=== PATIENT | male | born 1950 | race Caucasian/White ===

== ENCOUNTER 2018-03-04 18:01 | Inpatient (IN) | payer MEDICARE, MEDICAID ==
[~2018-03-04] VITALS: Ht 185.4 cm; Wt 107.6 kg
[~2018-03-04 18:01] MED LIST: ALBU18HF2 INH; ALBU2.5V13 NEB; ALLO100T PO; AMIO200T57 PO; ATOR40TA71 PO; BUDE10.2 INH; CARV25TA PO; COL0.6T PO; FURO-149 PO; LISI-642 PO; LORA0.5T PO; LORA10TA7 PO; MAGN400T6 PO; MELO-102 PO; METF-516 PO; OMEG500C3 PO; POTA10TA15 PO; SPIIN INH; SPIR25TA5 PO; TEST200V10 IM; THIA100T70 PO; UBID100C16 PO
[2018-03-04 19:03] LABS: BASOPHILS # (AUTO) 0.1 X10'3 (0-0.2); BASOPHILS % (AUTO) 0.8 % (0-1); EOSINOPHILS # (AUTO) 0.2 X10'3 (0-0.9); EOSINOPHILS % (AUTO) 1.8 % (0-6); HEMATOCRIT 51.8 % (42.0-52.0); HEMOGLOBIN 17.6 g/dl (14.0-17.9); LYMPHOCYTES # (AUTO) 1.6 X10'3 (1.1-4.8); LYMPHOCYTES % (AUTO) 18.5 % (21-51); MEAN CORPUSCULAR HEMOGLOBIN 31.5 PG (27.0-31.0); MEAN CORPUSCULAR HGB CONC 34.1 % (33.0-36.5); MEAN CORPUSCULAR VOLUME 92.4 FL (78-98); MEAN PLATELET VOLUME 8.6 FL (7.4-10.4); MONOCYTES # (AUTO) 0.6 X10'3 (0-0.9); MONOCYTES % (AUTO) 7.5 % (2-12); NEUTROPHILS # (AUTO) 6.1 X10'3 (1.8-7.7); NEUTROPHILS % (AUTO) 71.4 % (42-75); PLATELET COUNT 166 X10'3 (140-440); RED CELL DISTRIBUTION WIDTH 14.2 % (11.5-14.5); WHITE BLOOD COUNT 8.6 X10'3 (4.5-11.0)
[2018-03-04 19:13] LABS: PARTIAL THROMBOPLASTIN TIME 27 SECONDS (22-32); PROTHROMBIN TIME 10.6 SECONDS (9.0-12.0)
[2018-03-04 19:29] LABS: ALANINE AMINOTRANSFERASE 40 U/L (12-78); ALBUMIN 3.9 G/DL (3.4-5.0); ALBUMIN/GLOBULIN RATIO 1.1 (1.1-1.5); ALKALINE PHOSPHATASE 65 IU/L (46-116); ANION GAP 7 (8-16); ASPARTATE AMINO TRANSFERASE 24 U/L (10-37); BLOOD UREA NITROGEN 22 MG/DL (7-18); BUN/CREATININE RATIO 14.3 (5.4-32.0); CALCIUM 9.9 MG/DL (8.5-10.1); CHLORIDE 100 MMOL/L (99-107); CREATININE 1.54 MG/DL (0.60-1.10); GLUCOSE 115 MG/DL (70-104); POTASSIUM 3.9 MMOL/L (3.5-5.1); SODIUM 141 MMOL/L (135-145); TOTAL CARBON DIOXIDE 34.1 MMOL/L (24-32); TOTAL PROTEIN 7.3 G/DL (6.4-8.2); eGFR 46 ML/MIN
[2018-03-04] MEDS ORDERED: ondansetron/PF 4mg/2ml inj IV ONE (20:25)
[2018-03-04] MEDS ORDERED: meclizine 12.5mg tablet PO ONE (20:25)
[2018-03-04 20:47] LABS: D-DIMER 0.78 MG/L FEU (0-0.50)
[2018-03-04] MEDS ORDERED: furosemide 10 MG/1 ML 10ml inj IV ONE (21:10)
[2018-03-05] MEDS ORDERED: CARVEDILOL 25 MG TABLET (01:03)
[2018-03-05] MEDS ORDERED: INCRUSE ELLIPTA 62.5 MCG (01:03)
[2018-03-05] MEDS ORDERED: CARV25TA PO (01:05)
[2018-03-05] MEDS ORDERED: FURO-149 PO (01:06)
[2018-03-05] MEDS ORDERED: MULT-38 PO (01:06)
[2018-03-05] MEDS ORDERED: MAGN400C PO (01:08)
[2018-03-05] MEDS ORDERED: TEST75GE TD (01:16)
[2018-03-05] MEDS ORDERED: loratadine 10mg tablet PO PRN (01:45)
[2018-03-05] MEDS ORDERED: acetaminophen 325mg tablet PO PRN (01:45)
[2018-03-05] MEDS ORDERED: magnesium hydroxide 30ml (MOM) UD suspension PO PRN (01:45)
[2018-03-05] MEDS ORDERED: ondansetron/PF 4mg/2ml inj IV PRN (01:45)
[2018-03-05] MEDS ORDERED: LORazepam 0.5 MG tablet PO PRN (01:45)
[2018-03-05] MEDS ORDERED: mag hydrox/Alum hydrox/simeth 30ml oral suspension PO PRN (01:45)
[2018-03-05] MEDS ORDERED: magnesium Cl slow-release 64mg tablet PO PRN (01:50)
[2018-03-05] MEDS ORDERED: magnesium 1gm/100ml D5W IVPB 100 ML IV PRN (01:50)
[2018-03-05] MEDS ORDERED: meclizine 12.5mg tablet PO PRN (01:55)
[2018-03-05 01:58] LABS: MAGNESIUM 1.6 MG/DL (1.5-2.4)
[2018-03-05] MEDS ORDERED: albuterol 2.5 MG/3 ML nebule NEB PRN (02:50)
[2018-03-05 02:51] VITALS: BP 121/82
[2018-03-05 06:00] VITALS: BP 127/64
[2018-03-05] MEDS ORDERED: furosemide 40mg tablet PO SCH (08:00)
[2018-03-05] MEDS ORDERED: non-formulary drug (Budesonide/Formoterol Fumarate (Symbicort 160-4.5 Mcg Inhaler) 2 PUFFS INH SCH (08:00)
[2018-03-05] MEDS ORDERED: non-formulary drug (Ubidecarenone (Coq-10) 100 MG) PO SCH (08:00)
[2018-03-05] MEDS: multivitamins, therapeutics tablet PO SCH (08:50)
[2018-03-05] MEDS: spironolactone 25 MG tablet PO SCH (08:50)
[2018-03-05] MEDS: magnesium oxide 400mg tablet PO SCH (08:50)
[2018-03-05] MEDS: OMEGA-3/DHA/EPA/FISH OIL 1 EACH CAPSULE.DR PO SCH (08:50)
[2018-03-05] MEDS: carVEDilol 12.5mg tablet PO SCH ×2 (08:50→20:32)
[2018-03-05] MEDS: ipratropium 0.5 MG/2.5ML nebule IH SCH ×3 (08:54→21:33)
[2018-03-05] MEDS: albuterol 2.5 MG/3 ML nebule NEB SCH ×4 (08:54→21:32)
[2018-03-05] MEDS: budesonide 0.5mg/2ml UD nebule IH SCH ×2 (08:54→21:32)
[2018-03-05] MEDS ORDERED: magnesium 4gm in 100ml NS 100 ML IV ONE (10:30)
[2018-03-05] MEDS: furosemide 40mg/4ml inj IV SCH ×2 (10:57→20:32)
[2018-03-05 11:00] VITALS: BP 100/65
[2018-03-05] MEDS: potassium Cl 20 mEq SR tablet PO SCH ×2 (11:06→18:00)
[2018-03-05] MEDS: amiodarone 200mg tablet PO SCH (13:19)
[2018-03-05 15:00] VITALS: BP 116/80
[2018-03-05 18:00] VITALS: BP 113/63
[2018-03-05] MEDS ORDERED: ketorolac tromethamine 15mg/ml inj. IV PRN (18:30)
[2018-03-05] MEDS: HYDROcodone/acetaminophen 5mg/325mg tablet PO PRN (20:34)
[2018-03-05] MEDS: zolpidem 5mg tablet PO SCH (21:00)
[2018-03-05 22:00] VITALS: BP 107/71
[2018-03-06 02:00] VITALS: BP 97/65
[2018-03-06 05:47] LABS: BASOPHILS % (AUTO) 0.5 % (0-1); EOSINOPHILS # (AUTO) 0.2 X10'3 (0-0.9); EOSINOPHILS % (AUTO) 2.2 % (0-6); HEMATOCRIT 51.5 % (42.0-52.0); HEMOGLOBIN 17.4 g/dl (14.0-17.9); LYMPHOCYTES # (AUTO) 1.9 X10'3 (1.1-4.8); LYMPHOCYTES % (AUTO) 27.6 % (21-51); MEAN CORPUSCULAR HEMOGLOBIN 31.7 PG (27.0-31.0); MEAN CORPUSCULAR HGB CONC 33.8 % (33.0-36.5); MEAN CORPUSCULAR VOLUME 93.7 FL (78-98); MONOCYTES # (AUTO) 0.7 X10'3 (0-0.9); MONOCYTES % (AUTO) 9.4 % (2-12); NEUTROPHILS # (AUTO) 4.2 X10'3 (1.8-7.7); NEUTROPHILS % (AUTO) 60.3 % (42-75); PLATELET COUNT 144 X10'3 (140-440); RED BLOOD COUNT 5.49 X10'6 (4.70-6.10); RED CELL DISTRIBUTION WIDTH 14.4 % (11.5-14.5); WHITE BLOOD COUNT 6.9 X10'3 (4.5-11.0)
[2018-03-06 05:55] LABS: ALANINE AMINOTRANSFERASE 32 U/L (12-78); ALBUMIN 3.2 G/DL (3.4-5.0); ALBUMIN/GLOBULIN RATIO 0.9 (1.1-1.5); ALKALINE PHOSPHATASE 67 IU/L (46-116); ANION GAP 7 (8-16); ASPARTATE AMINO TRANSFERASE 18 U/L (10-37); BILIRUBIN,TOTAL 0.7 MG/DL (0.1-1.0); BLOOD UREA NITROGEN 25 MG/DL (7-18); BUN/CREATININE RATIO 18.1 (5.4-32.0); CALCIUM 8.6 MG/DL (8.5-10.1); CHLORIDE 101 MMOL/L (99-107); CREATININE 1.38 MG/DL (0.60-1.10); GLUCOSE 131 MG/DL (70-104); MAGNESIUM 1.7 MG/DL (1.5-2.4); POTASSIUM 4.2 MMOL/L (3.5-5.1); SODIUM 140 MMOL/L (135-145); TOTAL CARBON DIOXIDE 31.8 MMOL/L (24-32); TOTAL PROTEIN 6.7 G/DL (6.4-8.2); eGFR 52 ML/MIN
[2018-03-06 06:00] VITALS: BP 97/67
[2018-03-06] MEDS: ipratropium/albuterol 3ml nebule NEB SCH ×4 (07:00→20:13)
[2018-03-06] MEDS: multivitamins, therapeutics tablet PO SCH (07:57)
[2018-03-06] MEDS: OMEGA-3/DHA/EPA/FISH OIL 1 EACH CAPSULE.DR PO SCH (07:57)
[2018-03-06] MEDS: potassium Cl 20 mEq SR tablet PO SCH ×2 (07:58→16:40)
[2018-03-06] MEDS: magnesium oxide 400mg tablet PO SCH (07:58)
[2018-03-06] MEDS: HYDROcodone/acetaminophen 5mg/325mg tablet PO PRN ×3 (07:58→19:55)
[2018-03-06] MEDS: carVEDilol 12.5mg tablet PO SCH ×2 (07:59→19:49)
[2018-03-06] MEDS: furosemide 40mg/4ml inj IV SCH ×2 (07:59→19:49)
[2018-03-06] MEDS: ipratropium 0.5 MG/2.5ML nebule IH SCH ×3 (08:00→20:00)
[2018-03-06] MEDS ORDERED: magnesium 4gm in 100ml NS 100 ML IV ONE (08:00)
[2018-03-06] MEDS: amiodarone 200mg tablet PO SCH (08:01)
[2018-03-06] MEDS: spironolactone 25 MG tablet PO SCH (08:01)
[2018-03-06] MEDS: budesonide 0.5mg/2ml UD nebule IH SCH ×2 (08:32→20:13)
[2018-03-06 11:51] VITALS: BP 99/64
[2018-03-06 15:00] VITALS: BP 95/65
[2018-03-06 18:00] VITALS: BP 114/68
[2018-03-06] MEDS: zolpidem 5mg tablet PO SCH (19:56)
[2018-03-06 22:00] VITALS: BP 107/69
[2018-03-07 02:00] VITALS: BP 107/74
[2018-03-07] MEDS: ipratropium 0.5 MG/2.5ML nebule IH SCH ×2 (02:00→08:00)
[2018-03-07 06:00] VITALS: BP 119/72
[2018-03-07 06:03] LABS: ALANINE AMINOTRANSFERASE 36 U/L (12-78); ALBUMIN 3.4 G/DL (3.4-5.0); ALKALINE PHOSPHATASE 63 IU/L (46-116); ANION GAP 7 (8-16); ASPARTATE AMINO TRANSFERASE 17 U/L (10-37); BILIRUBIN,TOTAL 0.7 MG/DL (0.1-1.0); BLOOD UREA NITROGEN 30 MG/DL (7-18); BUN/CREATININE RATIO 19.4 (5.4-32.0); CALCIUM 8.6 MG/DL (8.5-10.1); CHLORIDE 102 MMOL/L (99-107); CREATININE 1.55 MG/DL (0.60-1.10); GLUCOSE 114 MG/DL (70-104); MAGNESIUM 1.9 MG/DL (1.5-2.4); POTASSIUM 4.5 MMOL/L (3.5-5.1); SODIUM 141 MMOL/L (135-145); TOTAL PROTEIN 6.7 G/DL (6.4-8.2); eGFR 45 ML/MIN
[2018-03-07 06:57] LABS: HEMATOCRIT 49.9 % (42.0-52.0); HEMOGLOBIN 16.6 g/dl (14.0-17.9); MEAN CORPUSCULAR HEMOGLOBIN 31.5 PG (27.0-31.0); MEAN CORPUSCULAR VOLUME 94.5 FL (78-98); RED BLOOD COUNT 5.28 X10'6 (4.70-6.10); WHITE BLOOD COUNT 7.6 X10'3 (4.5-11.0)
[2018-03-07 06:58] LABS: BASOPHILS % (AUTO) 0.4 % (0-1); EOSINOPHILS # (AUTO) 0.1 X10'3 (0-0.9); LYMPHOCYTES # (AUTO) 1.8 X10'3 (1.1-4.8); LYMPHOCYTES % (AUTO) 23.4 % (21-51); MEAN CORPUSCULAR HGB CONC 33.3 % (33.0-36.5); MEAN PLATELET VOLUME 8.6 FL (7.4-10.4); MONOCYTES # (AUTO) 0.7 X10'3 (0-0.9); MONOCYTES % (AUTO) 9.1 % (2-12); NEUTROPHILS # (AUTO) 4.9 X10'3 (1.8-7.7); NEUTROPHILS % (AUTO) 65.1 % (42-75); PLATELET COUNT 154 X10'3 (140-440); RED CELL DISTRIBUTION WIDTH 14.2 % (11.5-14.5)
[2018-03-07] MEDS: ipratropium/albuterol 3ml nebule NEB SCH ×2 (07:00→12:13)
[2018-03-07] MEDS: spironolactone 25 MG tablet PO SCH (07:49)
[2018-03-07] MEDS: multivitamins, therapeutics tablet PO SCH (07:50)
[2018-03-07] MEDS: amiodarone 200mg tablet PO SCH (07:50)
[2018-03-07] MEDS: carVEDilol 12.5mg tablet PO SCH (07:50)
[2018-03-07] MEDS: magnesium oxide 400mg tablet PO SCH (07:50)
[2018-03-07] MEDS: OMEGA-3/DHA/EPA/FISH OIL 1 EACH CAPSULE.DR PO SCH (07:50)
[2018-03-07] MEDS: HYDROcodone/acetaminophen 5mg/325mg tablet PO PRN (07:50)
[2018-03-07] MEDS: budesonide 0.5mg/2ml UD nebule IH SCH (07:51)
[2018-03-07] MEDS: potassium Cl 20 mEq SR tablet PO SCH (08:30)
[2018-03-07 09:00] VITALS: BP_SYST 103; BP_SYST 113; BP_SYST 122; BP_DIAS 63; BP_DIAS 67; BP_DIAS 74
[2018-03-07] MEDS: furosemide 40mg/4ml inj IV SCH (09:05)
[2018-03-07] MEDS ORDERED: AMIO200T57 PO (09:13)
[2018-03-07] MEDS ORDERED: MECL12.584 PO (09:27)
[2018-03-07 11:00] VITALS: BP 109/68
== END 2018-03-07 15:30 | disposition home or self-care (01) | DRG 291 ==
LOC: ER 18:02 → ED HOLD 03-05 01:43 → PCU 3S 03-05 02:27
PROVIDERS: ADMIT Internal Medicine; ATTEND Family Medicine
PROC: 4B02XTZ Measurement of Cardiac Defibrillator, External Approach (ICD-10-PCS; principal; 2018-03-06)
DX: I13.0 Hypertensive heart and chronic kidney disease with heart failure and stage 1 through stage 4 chronic kidney disease, or unspecified chronic kidney disease (principal); I50.23 Acute on chronic systolic (congestive) heart failure; I47.2 Ventricular tachycardia; I42.9 Cardiomyopathy, unspecified; F41.9 Anxiety disorder, unspecified; G47.33 Obstructive sleep apnea (adult) (pediatric); I25.10 Atherosclerotic heart disease of native coronary artery without angina pectoris; I71.4 Abdominal aortic aneurysm, without rupture; J44.9 Chronic obstructive pulmonary disease, unspecified; M10.9 Gout, unspecified; N18.9 Chronic kidney disease, unspecified; E83.42 Hypomagnesemia; I44.7 Left bundle-branch block, unspecified; Z96.653 Presence of artificial knee joint, bilateral; M19.90 Unspecified osteoarthritis, unspecified site; N40.0 Benign prostatic hyperplasia without lower urinary tract symptoms; Z95.810 Presence of automatic (implantable) cardiac defibrillator; Z98.1 Arthrodesis status; Z88.0 Allergy status to penicillin; Z79.51 Long term (current) use of inhaled steroids; Z79.899 Other long term (current) drug therapy; Z87.891 Personal history of nicotine dependence; Z83.42 Family history of familial hypercholesterolemia; Z80.0 Family history of malignant neoplasm of digestive organs; Y92.89 Other specified places as the place of occurrence of the external cause
CPT/HCPCS: 36415; 71045; 80053; 83735; 83880; 84484; 85025; 85379; 85610; 85730; 87070; 93005; 94640; 94760; 96374; 96375; 99285; J1885; J1940; J2405; J3475; J7030; J7626; J8597

== ENCOUNTER 2018-09-19 20:16 | Emergency (ER) | payer MEDICARE, MEDICAID ==
[~2018-09-19] VITALS: Ht 185.4 cm; Wt 80.0 kg
[~2018-09-19 20:16] MED LIST changes: -ALBU2.5V13 NEB; -ALLO100T PO; +AMIO200T40 PO; -AMIO200T57 PO; -ATOR40TA71 PO; -COL0.6T PO; +INCRUSE ELLIPTA 62.5 MCG; -LISI-642 PO; +MAGN400C PO; -MAGN400T6 PO; +MECL12.584 PO; -MELO-102 PO; -METF-516 PO; +MULT-38 PO; -POTA10TA15 PO; -TEST200V10 IM; +TEST75GE TD; -THIA100T70 PO
[2018-09-19 20:47] LABS: BASOPHILS % (AUTO) 0.3 % (0-1); EOSINOPHILS # (AUTO) 0.2 X10'3 (0-0.9); HEMATOCRIT 48.9 % (42.0-52.0); HEMOGLOBIN 16.4 g/dl (14.0-17.9); LYMPHOCYTES # (AUTO) 1.9 X10'3 (1.1-4.8); LYMPHOCYTES % (AUTO) 19.6 % (21-51); MEAN CORPUSCULAR HGB CONC 33.5 % (33.0-36.5); MEAN CORPUSCULAR VOLUME 92.5 FL (78-98); MEAN PLATELET VOLUME 9.1 FL (7.4-10.4); MONOCYTES # (AUTO) 0.6 X10'3 (0-0.9); MONOCYTES % (AUTO) 6.6 % (2-12); NEUTROPHILS % (AUTO) 71.5 % (42-75); PLATELET COUNT 187 X10'3 (140-440); RED BLOOD COUNT 5.29 X10'6 (4.70-6.10); RED CELL DISTRIBUTION WIDTH 14.2 % (11.5-14.5); WHITE BLOOD COUNT 9.7 X10'3 (4.5-11.0)
[2018-09-19 20:50] LABS: ALANINE AMINOTRANSFERASE 33 U/L (12-78); ALBUMIN 3.7 G/DL (3.4-5.0); ALKALINE PHOSPHATASE 90 IU/L (46-116); ANION GAP 5 (8-16); ASPARTATE AMINO TRANSFERASE 19 U/L (10-37); BILIRUBIN,TOTAL 0.6 MG/DL (0.1-1.0); BLOOD UREA NITROGEN 27 MG/DL (7-18); CALCIUM 9.1 MG/DL (8.5-10.1); CHLORIDE 100 MMOL/L (99-107); CREATININE 1.69 MG/DL (0.60-1.10); GLUCOSE 142 MG/DL (70-104); POTASSIUM 3.2 MMOL/L (3.5-5.1); SODIUM 142 MMOL/L (135-145); TOTAL CARBON DIOXIDE 37.1 MMOL/L (24-32); TOTAL PROTEIN 7.4 G/DL (6.4-8.2); eGFR 41 ML/MIN
--- NOTE | 2018-09-19 21:07 | NUR ---
PT IS 68 YO MALE C/O CHEST PRESSURE 6/10 X1 WEEK, INCREASING SOB, AT 1900 PT SAID HE WAS SHOCKED BY HIS PACEMAKER, INCREASED SWELLING IN THE BILATERAL LEGS, INCREASED LASIX TO 40MG BID FOR PAST 2 DAYS, EJ FRACTION PER PT 20-25%, FAMILY AT BEDSIDE, REPORT TO CYDNEY SANFORD
[2018-09-19 21:08] LABS: INR 1.1 INR; PARTIAL THROMBOPLASTIN TIME 28 SECONDS (22-32); PROTHROMBIN TIME 10.9 SECONDS (9.0-12.0)
[2018-09-19 21:43] LABS: MAGNESIUM 1.7 MG/DL (1.5-2.4)
[2018-09-19] MEDS ORDERED: potassium 10mEq/100ml NS w/LIDOcaine (10mg/bag) IV ONE (21:55)
[2018-09-20] MEDS ORDERED: furosemide 10 MG/1 ML 10ml inj IV ONE (01:05)
[2018-09-20] MEDS ORDERED: furosemide 20 MG/2 ML vial IV ONE (01:05)
[2018-09-20 01:11] VITALS: BP 126/74
--- NOTE | 2018-09-20 01:19 | NUR ---
Janett, [employer] tech, called with pacer interrogation results which will also be faxed: string ot VT noted with on particularly long resulting in 1 shock and successful response to normal sinus rythm. VT limit is set for >170 bpm.
--- NOTE | 2018-09-20 01:21 | NUR ---
CONNOR Cruz notified for [employer] results.
== END 2018-09-20 01:45 | disposition home or self-care (01) ==
LOC: ER 20:17
DX: T82.198A Other mechanical complication of other cardiac electronic device, initial encounter (principal); I47.2 Ventricular tachycardia; R60.9 Edema, unspecified; E87.6 Hypokalemia; Z95.810 Presence of automatic (implantable) cardiac defibrillator; I25.10 Atherosclerotic heart disease of native coronary artery without angina pectoris; I50.9 Heart failure, unspecified; J44.9 Chronic obstructive pulmonary disease, unspecified; Z86.14 Personal history of Methicillin resistant Staphylococcus aureus infection; Z98.890 Other specified postprocedural states; Z88.0 Allergy status to penicillin; Z79.899 Other long term (current) drug therapy
CPT/HCPCS: 36415; 71045; 80053; 83735; 83880; 84484; 85025; 85610; 85730; 93005; 96365; 96375; 99284; J1940; J3480

== ENCOUNTER 2018-10-02 14:43 | Inpatient (IN) | payer MEDICARE, MEDICAID ==
[~2018-10-02] VITALS: Ht 185.4 cm; Wt 79.9 kg
[2018-10-02 15:51] LABS: BASOPHILS # (AUTO) 0.1 X10'3 (0-0.2); BASOPHILS % (AUTO) 1.3 % (0-1); EOSINOPHILS # (AUTO) 0.2 X10'3 (0-0.9); EOSINOPHILS % (AUTO) 1.8 % (0-6); HEMATOCRIT 45.6 % (42.0-52.0); HEMOGLOBIN 15.2 g/dl (14.0-17.9); LYMPHOCYTES # (AUTO) 1.4 X10'3 (1.1-4.8); LYMPHOCYTES % (AUTO) 15.2 % (21-51); MEAN CORPUSCULAR HEMOGLOBIN 30.6 PG (27.0-31.0); MEAN CORPUSCULAR HGB CONC 33.3 g/dL (33.0-36.5); MEAN CORPUSCULAR VOLUME 91.9 FL (78-98); MEAN PLATELET VOLUME 8.8 FL (7.4-10.4); MONOCYTES # (AUTO) 0.8 X10'3 (0-0.9); MONOCYTES % (AUTO) 8.6 % (2-12); NEUTROPHILS # (AUTO) 6.5 X10'3 (1.8-7.7); NEUTROPHILS % (AUTO) 73.1 % (42-75); PLATELET COUNT 248 X10'3 (140-440); RED BLOOD COUNT 4.96 X10'6 (4.70-6.10); RED CELL DISTRIBUTION WIDTH 14.2 % (11.5-14.5); WHITE BLOOD COUNT 8.9 X10'3 (4.5-11.0)
[2018-10-02 16:02] LABS: CLARITY,URINE CLEAR (Clear); COLOR,URINE YELLOW (Yellow); GLUCOSE, URINE NEGATIVE (Neg); KETONES,URINE NEGATIVE (Neg); LEUKOCYTE ESTERASE ,URINE NEGATIVE (Neg); NITRITES, URINE NEGATIVE (Neg); OCCULT BLOOD,URINE NEGATIVE (Neg); PROTEIN,URINE NEGATIVE (Neg); UROBILINOGEN,URINE 0.2 E.U/dL (0.2-1.0)
[2018-10-02 16:04] LABS: UA COLLECTION TYPE CLN CATCH MIDSTREAM
[2018-10-02 16:07] LABS: ALANINE AMINOTRANSFERASE 8 U/L (12-78); ALBUMIN 3.4 G/DL (3.4-5.0); ALBUMIN/GLOBULIN RATIO 0.9 (1.1-1.5); ALKALINE PHOSPHATASE 79 IU/L (46-116); ANION GAP 7 (8-16); ASPARTATE AMINO TRANSFERASE 15 U/L (10-37); BILIRUBIN,TOTAL 0.7 MG/DL (0.1-1.0); BLOOD UREA NITROGEN 21 MG/DL (7-18); BUN/CREATININE RATIO 16.2 (5.4-32.0); CALCIUM 9.1 MG/DL (8.5-10.1); CHLORIDE 100 MMOL/L (99-107); GLUCOSE 123 MG/DL (70-104); SODIUM 139 MMOL/L (135-145); TOTAL CARBON DIOXIDE 31.6 MMOL/L (24-32); TOTAL PROTEIN 7.2 G/DL (6.4-8.2); eGFR 55 ML/MIN
[2018-10-02 16:23] LABS: INR 1.1 INR; PARTIAL THROMBOPLASTIN TIME 31 SECONDS (22-32); PROTHROMBIN TIME 11.4 SECONDS (9.0-12.0)
[2018-10-02] MEDS ORDERED: methylPREDNISolone sod succ 125mg/2ml vial IV ONE (18:55)
[2018-10-02] MEDS ORDERED: albuterol 2.5 MG/3 ML nebule NEB ONE (18:55)
[2018-10-02] MEDS ORDERED: ipratropium/albuterol 3ml nebule NEB ONE (18:55)
[2018-10-02] MEDS ORDERED: furosemide 40mg/4ml inj IV ONE (18:55)
[2018-10-02] MEDS ORDERED: temazepam 15mg capsule PO PRN (21:00)
[2018-10-02] MEDS ORDERED: mag hydrox/Alum hydrox/simeth 30ml oral suspension PO PRN (22:40)
[2018-10-02] MEDS ORDERED: potassium Cl 20 mEq SR tablet PO PRN ×2 (22:40)
[2018-10-02] MEDS ORDERED: magnesium 4gm in 100ml NS 100 ML IV PRN (22:40)
[2018-10-02] MEDS ORDERED: HYDROcodone/acetaminophen 5mg/325mg tablet PO PRN (22:40)
[2018-10-02] MEDS ORDERED: ondansetron/PF 4mg/2ml inj IV PRN (22:40)
[2018-10-02] MEDS ORDERED: magnesium Cl slow-release 64mg tablet PO PRN (22:40)
[2018-10-02] MEDS ORDERED: magnesium hydroxide 30ml (MOM) UD suspension PO PRN (22:40)
[2018-10-02] MEDS ORDERED: acetaminophen 325mg tablet PO PRN ×2 (22:40)
[2018-10-02] MEDS ORDERED: magnesium 2GM in 50ml NS 50 ML IV PRN (22:40)
[2018-10-02] MEDS ORDERED: albuterol 2.5 MG/3 ML nebule NEB PRN (22:40)
[2018-10-02] MEDS ORDERED: potassium Cl 40MEQ/NS 500ml 500 ML IV PRN ×2 (22:40)
[2018-10-03] MEDS: furosemide 10 MG/1 ML 10ml inj IV SCH ×3 (00:56→17:22)
[2018-10-03] MEDS: HYDROcodone/acetaminophen 10/325mg tab PO PRN ×4 (01:40→17:32)
--- NOTE | 2018-10-03 07:30 | NUR ---
Patient in room [facility]. I have received report from Barb RN and had the opportunity to ask questions and assume patient care.
--- NOTE | 2018-10-03 07:44 | NUR ---
Patient just arrived to floor at this time
[2018-10-03 07:48] VITALS: BP 124/67
[2018-10-03] MEDS ORDERED: AMIO200T40 PO (07:49)
[2018-10-03 07:57] LABS: BASOPHILS % (AUTO) 0.4 % (0-1); EOSINOPHILS % (AUTO) 0.7 % (0-6); HEMATOCRIT 47.1 % (42.0-52.0); HEMOGLOBIN 15.6 g/dl (14.0-17.9); LYMPHOCYTES # (AUTO) 0.6 X10'3 (1.1-4.8); LYMPHOCYTES % (AUTO) 10.6 % (21-51); MEAN CORPUSCULAR HEMOGLOBIN 30.2 PG (27.0-31.0); MEAN CORPUSCULAR HGB CONC 33.1 g/dL (33.0-36.5); MEAN PLATELET VOLUME 8.8 FL (7.4-10.4); MONOCYTES # (AUTO) 0.1 X10'3 (0-0.9); MONOCYTES % (AUTO) 1.7 % (2-12); NEUTROPHILS # (AUTO) 5.3 X10'3 (1.8-7.7); NEUTROPHILS % (AUTO) 86.6 % (42-75); PLATELET COUNT 245 X10'3 (140-440); RED BLOOD COUNT 5.17 X10'6 (4.70-6.10); RED CELL DISTRIBUTION WIDTH 13.9 % (11.5-14.5); WHITE BLOOD COUNT 6.1 X10'3 (4.5-11.0)
[2018-10-03] MEDS: K and/or MAG REPLACEMENT MC SCH (08:00)
[2018-10-03] MEDS ORDERED: MECL12.584 PO (08:04)
[2018-10-03 08:16] LABS: ALBUMIN 3.2 G/DL (3.4-5.0); ANION GAP 9 (8-16); BLOOD UREA NITROGEN 24 MG/DL (7-18); BUN/CREATININE RATIO 18.5 (5.4-32.0); CALCIUM 9.1 MG/DL (8.5-10.1); CHLORIDE 97 MMOL/L (99-107); GLUCOSE 213 MG/DL (70-104); MAGNESIUM 1.6 MG/DL (1.5-2.4); POTASSIUM 3.6 MMOL/L (3.5-5.1); SODIUM 140 MMOL/L (135-145); TOTAL CARBON DIOXIDE 34.1 MMOL/L (24-32); eGFR 55 ML/MIN
[2018-10-03] MEDS: enoxaparin 30mg/0.3ml syringe SUBCUT SCH (08:49)
[2018-10-03] MEDS ORDERED: LORazepam 0.5 MG tablet PO PRN (09:35)
[2018-10-03 11:00] VITALS: BP 127/84
[2018-10-03] MEDS ORDERED: albuterol 2.5 MG/3 ML nebule NEB SCH (11:00)
[2018-10-03] MEDS: ipratropium/albuterol 3ml nebule NEB SCH ×3 (11:03→19:06)
[2018-10-03] MEDS ORDERED: MULT-453 PO (12:40)
[2018-10-03] MEDS ORDERED: ALLO300T2 PO (12:43)
[2018-10-03] MEDS ORDERED: POTA8TAB8 PO (12:43)
[2018-10-03] MEDS ORDERED: COLC0.6T69 PO (12:45)
--- NOTE | 2018-10-03 14:00 | NUR ---
PHYSICIAN NOTIFIED THAT PATIENT HAD 23 BEAT RUN OF [facility]-TACH. PHYSICIAN ADDED NEW ORDERS AT THIS TIME.
[2018-10-03] MEDS ORDERED: magnesium 2GM in 50ml NS 50 ML IV ONE (14:20)
[2018-10-03] MEDS ORDERED: Potassium Cl inj 40 MEQ in normal saline 250ml IV soln 230 ML IV ONE (14:20)
[2018-10-03] MEDS ORDERED: potassium Cl 20 mEq SR tablet PO STA (14:36)
[2018-10-03] MEDS: methylPREDNISolone sod succ 125mg/2ml vial IV SCH ×2 (15:10→21:20)
[2018-10-03] MEDS ORDERED: triamcinolone acetonide 40mg/ml inj IM ONE (16:05)
--- NOTE | 2018-10-03 16:38 | NUR ---
Nutrition consult re: diets for gout and CHF. Pt seen at bedside given written and verbal low-purine/purine-restricted nutrition therapy and low sodium nutrition therapy education. All of patient's questions were answered at this time. RD contact information provided. Will remain available. Addendum: 10/03/18 at [address] Amended: Links added.
[2018-10-03] MEDS: allopurinol 300 MG tablet PO SCH (17:13)
[2018-10-03] MEDS: azithromycin 250mg tablet PO SCH (17:14)
[2018-10-03] MEDS: CefTRIAXone/D5W-Rocephin 1gm 50 ML IV SCH (17:14)
--- NOTE | 2018-10-03 17:52 | NUR ---
Patients IM Regina just arrived to floor, was unable to administer will have shift supervisor administer medication.
[2018-10-03 18:00] VITALS: BP 108/60
--- NOTE | 2018-10-03 18:39 | NUR ---
Problems reprioritized. Patient report given, questions answered & plan of care reviewed with Paul SANFORD.
--- NOTE | 2018-10-03 18:40 | NUR ---
Patient in room [facility] 358. I have received report from CLARIBEL Dumont and had the opportunity to ask questions and assume patient care.
[2018-10-03] MEDS: budesonide 0.5mg/2ml UD nebule IH SCH (19:06)
[2018-10-03] MEDS ORDERED: albuterol 2.5 MG/3 ML nebule NEB PRN (19:55)
[2018-10-03 20:29] LABS: ALBUMIN 3.3 G/DL (3.4-5.0); ANION GAP 11 (8-16); BLOOD UREA NITROGEN 32 MG/DL (7-18); BUN/CREATININE RATIO 19.5 (5.4-32.0); CALCIUM 9.6 MG/DL (8.5-10.1); CHLORIDE 95 MMOL/L (99-107); CREATININE 1.64 MG/DL (0.60-1.10); GLUCOSE 233 MG/DL (70-104); SODIUM 138 MMOL/L (135-145); TOTAL CARBON DIOXIDE 31.8 MMOL/L (24-32); eGFR 42 ML/MIN
[2018-10-03 20:33] LABS: POTASSIUM 4.3 MMOL/L (3.5-5.1)
[2018-10-03] MEDS ORDERED: potassium Cl 20 mEq SR tablet PO SCH (20:40)
[2018-10-03] MEDS: carVEDilol 12.5mg tablet PO SCH (21:18)
[2018-10-03] MEDS: colchicine 0.6mg tablet PO SCH (21:20)
[2018-10-04] VITALS: BP 118/81
[2018-10-04] MEDS: methylPREDNISolone sod succ 125mg/2ml vial IV SCH ×3 (02:11→19:40)
[2018-10-04] MEDS: HYDROcodone/acetaminophen 10/325mg tab PO PRN ×2 (02:17→10:39)
--- NOTE | 2018-10-04 06:02 | NUR ---
Problems reprioritized. Patient report given, questions answered & plan of care reviewed with CLARIBEL Dumont.
--- NOTE | 2018-10-04 06:30 | NUR ---
Patient in room [facility] 358. I have received report from Paul SANFORD and had the opportunity to ask questions and assume patient care.
[2018-10-04 07:23] VITALS: BP 142/73
[2018-10-04 07:26] LABS: ANION GAP 8 (8-16); BLOOD UREA NITROGEN 34 MG/DL (7-18); BUN/CREATININE RATIO 26.6 (5.4-32.0); CALCIUM 9.2 MG/DL (8.5-10.1); CHLORIDE 99 MMOL/L (99-107); CREATININE 1.28 MG/DL (0.60-1.10); GLUCOSE 227 MG/DL (70-104); POTASSIUM 4.3 MMOL/L (3.5-5.1); SODIUM 140 MMOL/L (135-145); TOTAL CARBON DIOXIDE 33.3 MMOL/L (24-32); eGFR 56 ML/MIN
[2018-10-04 07:36] LABS: BASOPHILS % (AUTO) 0.1 % (0-1); EOSINOPHILS # (AUTO) 0.2 X10'3 (0-0.9); EOSINOPHILS % (AUTO) 1.7 % (0-6); HEMATOCRIT 47.2 % (42.0-52.0); HEMOGLOBIN 15.7 g/dl (14.0-17.9); LYMPHOCYTES # (AUTO) 0.6 X10'3 (1.1-4.8); MEAN CORPUSCULAR HEMOGLOBIN 30.5 PG (27.0-31.0); MEAN CORPUSCULAR HGB CONC 33.3 g/dL (33.0-36.5); MEAN CORPUSCULAR VOLUME 91.4 FL (78-98); MEAN PLATELET VOLUME 8.8 FL (7.4-10.4); MONOCYTES # (AUTO) 0.2 X10'3 (0-0.9); MONOCYTES % (AUTO) 1.6 % (2-12); NEUTROPHILS # (AUTO) 10.5 X10'3 (1.8-7.7); NEUTROPHILS % (AUTO) 91.6 % (42-75); PLATELET COUNT 248 X10'3 (140-440); RED BLOOD COUNT 5.16 X10'6 (4.70-6.10); RED CELL DISTRIBUTION WIDTH 13.9 % (11.5-14.5); WHITE BLOOD COUNT 11.5 X10'3 (4.5-11.0)
[2018-10-04] MEDS: ipratropium/albuterol 3ml nebule NEB SCH ×2 (07:41→19:29)
[2018-10-04] MEDS: budesonide 0.5mg/2ml UD nebule IH SCH ×2 (07:41→19:28)
[2018-10-04] MEDS ORDERED: non-formulary drug (Magnesium Oxide (Magnesium) 1 CAP) PO SCH (08:00)
[2018-10-04] MEDS ORDERED: amiodarone 200mg tablet PO SCH (08:00)
[2018-10-04] MEDS: K and/or MAG REPLACEMENT MC SCH (08:00)
[2018-10-04] MEDS ORDERED: non-formulary drug (Tiotropium Bromide (SPIRIVA inhaler) 1 CAP) INH SCH (08:00)
[2018-10-04] MEDS ORDERED: non-formulary drug (Ubidecarenone (Coq-10) 100 MG) PO SCH (08:00)
[2018-10-04] MEDS: multivitamins, therapeutics tablet PO SCH ×2 (08:00→09:50)
[2018-10-04] MEDS: furosemide 10 MG/1 ML 10ml inj IV SCH ×2 (09:46→19:39)
[2018-10-04] MEDS: CefTRIAXone/D5W-Rocephin 1gm 50 ML IV SCH (09:47)
[2018-10-04] MEDS: enoxaparin 30mg/0.3ml syringe SUBCUT SCH (09:47)
[2018-10-04] MEDS: OMEGA-3/DHA/EPA/FISH OIL 1 EACH CAPSULE.DR PO SCH (09:48)
[2018-10-04] MEDS: spironolactone 25 MG tablet PO SCH (09:48)
[2018-10-04] MEDS: colchicine 0.6mg tablet PO SCH ×2 (09:49→19:38)
[2018-10-04] MEDS: azithromycin 250mg tablet PO SCH (09:49)
[2018-10-04] MEDS: allopurinol 300 MG tablet PO SCH (09:49)
[2018-10-04] MEDS: carVEDilol 12.5mg tablet PO SCH ×2 (09:52→19:38)
[2018-10-04 11:00] VITALS: BP 112/83
[2018-10-04] MEDS ORDERED: magnesium 2GM in 50ml NS 50 ML IV ONE (13:25)
[2018-10-04 18:00] VITALS: BP 135/63
--- NOTE | 2018-10-04 18:39 | NUR ---
Problems reprioritized. Patient report given, questions answered & plan of care reviewed with Paul SANFORD.
--- NOTE | 2018-10-04 18:40 | NUR ---
Patient in room [facility] 358. I have received report from CLARIBEL Dumont and had the opportunity to ask questions and assume patient care.
[2018-10-05 00:07] VITALS: BP 120/68
--- NOTE | 2018-10-05 06:25 | NUR ---
Patient in room [facility] 358. I have received report from Paul SANFORD and had the opportunity to ask questions and assume patient care. SN following.
[2018-10-05 06:36] LABS: ALBUMIN 3.1 G/DL (3.4-5.0); ANION GAP 9 (8-16); BLOOD UREA NITROGEN 38 MG/DL (7-18); BUN/CREATININE RATIO 32.8 (5.4-32.0); CALCIUM 9.5 MG/DL (8.5-10.1); CHLORIDE 99 MMOL/L (99-107); CREATININE 1.16 MG/DL (0.60-1.10); GLUCOSE 211 MG/DL (70-104); MAGNESIUM 2.1 MG/DL (1.5-2.4); SODIUM 139 MMOL/L (135-145); TOTAL CARBON DIOXIDE 31.2 MMOL/L (24-32); eGFR 63 ML/MIN
[2018-10-05 06:37] LABS: POTASSIUM 4.3 MMOL/L (3.5-5.1)
--- NOTE | 2018-10-05 06:41 | NUR ---
Problems reprioritized. Patient report given, questions answered & plan of care reviewed with CLARIBEL Linder.
[2018-10-05 07:00] LABS: BASOPHILS % (AUTO) 0 % (0-1); EOSINOPHILS # (AUTO) 0.2 X10'3 (0-0.9); EOSINOPHILS % (AUTO) 1.2 % (0-6); HEMATOCRIT 51.3 % (42.0-52.0); HEMOGLOBIN 16.8 g/dl (14.0-17.9); LYMPHOCYTES # (AUTO) 0.7 X10'3 (1.1-4.8); LYMPHOCYTES % (AUTO) 4.6 % (21-51); MEAN CORPUSCULAR HEMOGLOBIN 30.2 PG (27.0-31.0); MEAN CORPUSCULAR HGB CONC 32.8 g/dL (33.0-36.5); MEAN CORPUSCULAR VOLUME 92.1 FL (78-98); MEAN PLATELET VOLUME 8.6 FL (7.4-10.4); MONOCYTES # (AUTO) 0.2 X10'3 (0-0.9); MONOCYTES % (AUTO) 1.3 % (2-12); NEUTROPHILS # (AUTO) 13.6 X10'3 (1.8-7.7); NEUTROPHILS % (AUTO) 92.9 % (42-75); PLATELET COUNT 244 X10'3 (140-440); RED BLOOD COUNT 5.57 X10'6 (4.70-6.10); WHITE BLOOD COUNT 14.6 X10'3 (4.5-11.0)
[2018-10-05 07:16] VITALS: BP 116/68
[2018-10-05] MEDS: K and/or MAG REPLACEMENT MC SCH (07:19)
[2018-10-05] MEDS: budesonide 0.5mg/2ml UD nebule IH SCH (07:49)
[2018-10-05] MEDS: ipratropium/albuterol 3ml nebule NEB SCH (07:49)
[2018-10-05] MEDS: colchicine 0.6mg tablet PO SCH (08:18)
[2018-10-05] MEDS: enoxaparin 30mg/0.3ml syringe SUBCUT SCH (08:23)
[2018-10-05] MEDS: furosemide 10 MG/1 ML 10ml inj IV SCH (08:25)
[2018-10-05] MEDS: methylPREDNISolone sod succ 125mg/2ml vial IV SCH (08:25)
[2018-10-05] MEDS: allopurinol 300 MG tablet PO SCH (08:26)
[2018-10-05] MEDS: OMEGA-3/DHA/EPA/FISH OIL 1 EACH CAPSULE.DR PO SCH (08:27)
[2018-10-05] MEDS: multivitamins, therapeutics tablet PO SCH ×2 (08:27→08:31)
[2018-10-05] MEDS: azithromycin 250mg tablet PO SCH (08:28)
[2018-10-05] MEDS: carVEDilol 12.5mg tablet PO SCH (08:28)
[2018-10-05] MEDS: spironolactone 25 MG tablet PO SCH (08:29)
[2018-10-05] MEDS: CefTRIAXone/D5W-Rocephin 1gm 50 ML IV SCH (08:29)
[2018-10-05] MEDS: HYDROcodone/acetaminophen 10/325mg tab PO PRN (10:27)
[2018-10-05 11:23] VITALS: BP 121/55
[2018-10-05] MEDS ORDERED: PRED20TA PO (12:55)
[2018-10-05] MEDS ORDERED: FURO40TA4 PO (12:55)
[2018-10-05] MEDS ORDERED: COL0.6T PO (12:55)
[2018-10-05] MEDS ORDERED: CEFD300C3 PO (12:55)
== END 2018-10-05 15:45 | disposition home or self-care (01) | DRG 291 ==
LOC: ER 14:44 → ED HOLD 22:39 → SUR 3N 10-03 07:43
PROVIDERS: ADMIT Hospitalist; ATTEND Family Medicine
DX: I50.23 Acute on chronic systolic (congestive) heart failure (principal); J96.00 Acute respiratory failure, unspecified whether with hypoxia or hypercapnia; J44.1 Chronic obstructive pulmonary disease with (acute) exacerbation; I42.9 Cardiomyopathy, unspecified; N17.9 Acute kidney failure, unspecified; M10.9 Gout, unspecified; N18.9 Chronic kidney disease, unspecified; E78.00 Pure hypercholesterolemia, unspecified; I25.10 Atherosclerotic heart disease of native coronary artery without angina pectoris; Z88.0 Allergy status to penicillin; Z87.891 Personal history of nicotine dependence; Z95.810 Presence of automatic (implantable) cardiac defibrillator; Z80.0 Family history of malignant neoplasm of digestive organs; Z86.14 Personal history of Methicillin resistant Staphylococcus aureus infection
CPT/HCPCS: 36415; 71045; 73610; 73630; 80048; 80053; 81003; 83605; 83735; 83880; 84145; 84439; 84443; 84550; 85025; 85610; 85730; 87040; 87070; 93306; 93971; 94640; 94760; 96374; 96375; 99285; G0378; J0696; J1650; J1940; J2930; J3301; J3475; J3480; J7030; J7626

== ENCOUNTER 2019-03-18 12:09 | Outpatient (CLI) | payer MEDICARE, MEDICAID ==
[~2019-03-18] VITALS: Ht 182.9 cm; Wt 104.3 kg
[~2019-03-18 12:09] MED LIST changes: +ALLO300T2 PO; -AMIO200T40 PO; -FURO-149 PO; +FURO40TA4 PO; -INCRUSE ELLIPTA 62.5 MCG; -MECL12.584 PO; -MULT-38 PO; +MULT-453 PO; +POTA8TAB8 PO; -SPIIN INH
[2019-03-18] MEDS ORDERED: albuterol 2.5 MG/3 ML nebule NEB ONE (13:05)
== END 2019-03-18 23:59 | disposition home or self-care (01) ==
LOC: RT 12:09
PROVIDERS: ATTEND Specialist
DX: J44.9 Chronic obstructive pulmonary disease, unspecified (principal); I50.9 Heart failure, unspecified; Z87.891 Personal history of nicotine dependence; Z79.899 Other long term (current) drug therapy; Z95.0 Presence of cardiac pacemaker
CPT/HCPCS: 85018; 94060; 94727; 94729; 94760

== ENCOUNTER 2019-09-25 13:31 | Inpatient (IN) | payer MEDICARE, MEDICAID ==
[~2019-09-25] VITALS: Ht 182.9 cm; Wt 113.0 kg
[2019-09-25] MEDS ORDERED: ipratropium/albuterol 3ml nebule NEB ONE (14:30)
[2019-09-25] MEDS ORDERED: methylPREDNISolone sod succ 125mg/2ml vial IM ONE (14:30)
--- NOTE | 2019-09-25 14:43 | NUR ---
assisting RN with pt care, Seymour MATHIS gave verbal order to change solumedrol 125mg IM to IV, RT at bedside to give breathing tx
[2019-09-25 14:50] LABS: BASOPHILS # (AUTO) 0.1 X10'3 (0-0.2); BASOPHILS % (AUTO) 0.7 % (0-1); EOSINOPHILS # (AUTO) 0.1 X10'3 (0-0.9); EOSINOPHILS % (AUTO) 1.4 % (0-6); HEMATOCRIT 50.2 % (42.0-52.0); LYMPHOCYTES # (AUTO) 1.6 X10'3 (1.1-4.8); LYMPHOCYTES % (AUTO) 21.1 % (21-51); MEAN CORPUSCULAR HEMOGLOBIN 31.5 PG (27.0-31.0); MEAN CORPUSCULAR HGB CONC 33.9 g/dL (33.0-36.5); MEAN PLATELET VOLUME 8.4 FL (7.4-10.4); MONOCYTES # (AUTO) 0.8 X10'3 (0-0.9); MONOCYTES % (AUTO) 10.1 % (2-12); NEUTROPHILS # (AUTO) 5.2 X10'3 (1.8-7.7); NEUTROPHILS % (AUTO) 66.7 % (42-75); PLATELET COUNT 183 X10'3 (140-440); RED CELL DISTRIBUTION WIDTH 14.3 % (11.5-14.5); WHITE BLOOD COUNT 7.8 X10'3 (4.5-11.0)
[2019-09-25 15:00] LABS: PARTIAL THROMBOPLASTIN TIME 29 SECONDS (22-32)
[2019-09-25 15:03] LABS: ALANINE AMINOTRANSFERASE 57 U/L (12-78); ALBUMIN 3.9 G/DL (3.4-5.0); ALBUMIN/GLOBULIN RATIO 1.1 (1.1-1.5); ALKALINE PHOSPHATASE 101 IU/L (46-116); ANION GAP 5 (8-16); ASPARTATE AMINO TRANSFERASE 38 U/L (10-37); BILIRUBIN,TOTAL 0.5 MG/DL (0.1-1.0); BLOOD UREA NITROGEN 26 MG/DL (7-18); BUN/CREATININE RATIO 18.4 (5.4-32.0); CALCIUM 9.2 MG/DL (8.5-10.1); CHLORIDE 103 MMOL/L (99-107); CREATININE 1.41 MG/DL (0.60-1.10); GLUCOSE 103 MG/DL (70-104); POTASSIUM 3.8 MMOL/L (3.5-5.1); SODIUM 142 MMOL/L (135-145); TOTAL CARBON DIOXIDE 34.2 MMOL/L (24-32); TOTAL PROTEIN 7.3 G/DL (6.4-8.2); eGFR 50 ML/MIN
[2019-09-25] MEDS ORDERED: furosemide 10 MG/1 ML 10ml inj IV ONE (15:25)
[2019-09-25] MEDS ORDERED: potassium chloride 8mEq ER tablet PO ONE (15:25)
[2019-09-25] MEDS ORDERED: BUDE10.2 INH (16:22)
[2019-09-25] MEDS ORDERED: FURO-149 PO (16:22)
[2019-09-25] MEDS ORDERED: AMIO200T61 PO (16:23)
[2019-09-25] MEDS ORDERED: LOSA25TA41 PO (16:23)
[2019-09-25 16:25] LABS: ABG HCO3 29.1 mmol/L (22.0-26.0); ABG OXYGEN SATURATION 93.5 % (95-98); ABG PCO2 (T) 44.7 mmHg (35.0-45.0); ABG PH (T) 7.431 (7.350-7.450); ABG PO2 (T) 61.4 mmHg (83-108); ALLEN'S TEST POSITIVE; FCOHb 0.9 % (0.5-1.5); FMetHb 0.2 % (0.3-1.12); FO2Hb 92.5 % (94-100); TOTAL HEMOGLOBIN 17.9 G/dl (14.0-17.9)
[2019-09-25] MEDS ORDERED: ondansetron/PF 4mg/2ml inj IV PRN (17:20)
[2019-09-25] MEDS ORDERED: morphine 2 MG/ML inj. syringe IV PRN (17:20)
[2019-09-25] MEDS ORDERED: potassium Cl 20 mEq SR tablet PO PRN ×2 (17:20)
[2019-09-25] MEDS ORDERED: potassium CL 10mEq/100ml bag 100 ML IV PRN ×2 (17:20)
[2019-09-25] MEDS ORDERED: non-formulary drug (Albuterol Sulfate (Ventolin Hfa) 2 PUFFS) INH PRN (17:20)
[2019-09-25] MEDS ORDERED: magnesium 2GM in 50ml NS 50 ML IV PRN (17:20)
[2019-09-25] MEDS ORDERED: magnesium Cl slow-release 64mg tablet PO PRN (17:20)
[2019-09-25] MEDS ORDERED: magnesium 4gm in 100ml NS 100 ML IV PRN (17:20)
[2019-09-25] MEDS ORDERED: acetaminophen 325mg tablet PO PRN ×2 (17:20)
--- NOTE | 2019-09-25 18:30 | NUR ---
Patient in room PCU 3016. I have received report from CLARIBEL sullivan in ER and had the opportunity to ask questions and assume patient care.
--- NOTE | 2019-09-25 18:50 | NUR ---
Arrived at 1850 on PCU 3016B: Patient was oriented to the room, educated on MRSA swab test, and placed on tele box 40. A&Ox4. SOB and denied nausea, burning on urination, and chest pain. Vital signs stable BP: 142/71, HR 70, SpO2 92 on 2L NC RR 24
[2019-09-25] MEDS: K and/or MAG REPLACEMENT MC SCH (20:00)
[2019-09-25] MEDS: docusate sod 100mg capsule PO SCH (20:00)
[2019-09-25] MEDS: budesonide 0.5mg/2ml UD nebule IH SCH (20:00)
[2019-09-25] MEDS: albuterol 2.5 MG/3 ML nebule NEB SCH (20:00)
[2019-09-25] MEDS: heparin, porcine 5000 units/ml vial SQ SCH (20:48)
[2019-09-25] MEDS: carVEDilol 12.5mg tablet PO SCH (20:48)
[2019-09-25] MEDS: furosemide 40mg/4ml inj IV SCH (20:49)
[2019-09-25] MEDS ORDERED: temazepam 15mg capsule PO PRN (21:00)
[2019-09-25 22:06] VITALS: BP 117/63
[2019-09-25] MEDS: losartan 25mg tablet PO SCH (22:06)
[2019-09-26] MEDS: albuterol 2.5 MG/3 ML nebule NEB SCH ×7 (00:01→23:20)
[2019-09-26 02:00] VITALS: BP 118/70
[2019-09-26] MEDS: HYDROcodone/acetaminophen 5mg/325mg tablet PO PRN ×3 (04:08→16:21)
--- NOTE | 2019-09-26 06:29 | NUR ---
Problems reprioritized. Patient report given, questions answered & plan of care reviewed with CLARIBEL Guzman.
--- NOTE | 2019-09-26 06:44 | NUR ---
Patient in room PCU 3016. I have received report from CLARIBEL Stewart and had the opportunity to ask questions and assume patient care.
[2019-09-26 06:52] LABS: BASOPHILS % (AUTO) 0.2 % (0-1); EOSINOPHILS % (AUTO) 0 % (0-6); HEMATOCRIT 50.5 % (42.0-52.0); LYMPHOCYTES # (AUTO) 0.8 X10'3 (1.1-4.8); LYMPHOCYTES % (AUTO) 11.7 % (21-51); MEAN CORPUSCULAR HEMOGLOBIN 31.4 PG (27.0-31.0); MEAN CORPUSCULAR HGB CONC 33.7 g/dL (33.0-36.5); MEAN CORPUSCULAR VOLUME 93.2 FL (78-98); MEAN PLATELET VOLUME 8.6 FL (7.4-10.4); MONOCYTES # (AUTO) 0.1 X10'3 (0-0.9); MONOCYTES % (AUTO) 2.2 % (2-12); NEUTROPHILS # (AUTO) 5.6 X10'3 (1.8-7.7); NEUTROPHILS % (AUTO) 85.9 % (42-75); PLATELET COUNT 173 X10'3 (140-440); RED BLOOD COUNT 5.42 X10'6 (4.70-6.10); RED CELL DISTRIBUTION WIDTH 14.1 % (11.5-14.5); WHITE BLOOD COUNT 6.5 X10'3 (4.5-11.0)
[2019-09-26 07:00] VITALS: BP 119/69
[2019-09-26 07:20] LABS: ALANINE AMINOTRANSFERASE 60 U/L (12-78); ALBUMIN 3.7 G/DL (3.4-5.0); ALBUMIN/GLOBULIN RATIO 1.1 (1.1-1.5); ALKALINE PHOSPHATASE 73 IU/L (46-116); ANION GAP 9 (8-16); ASPARTATE AMINO TRANSFERASE 30 U/L (10-37); BILIRUBIN,TOTAL 0.5 MG/DL (0.1-1.0); BLOOD UREA NITROGEN 33 MG/DL (7-18); BUN/CREATININE RATIO 22.1 (5.4-32.0); CALCIUM 9.1 MG/DL (8.5-10.1); CHLORIDE 100 MMOL/L (99-107); CHOLESTEROL 203 MG/DL (0-200); CREATININE 1.49 MG/DL (0.60-1.10); GLUCOSE 165 MG/DL (70-104); HDL CHOLESTEROL 51 MG/DL (35-60); LDL CHOLESTEROL 138 MG/DL (50-100); MAGNESIUM 1.7 MG/DL (1.5-2.4); POTASSIUM 3.9 MMOL/L (3.5-5.1); SODIUM 145 MMOL/L (135-145); TOTAL CARBON DIOXIDE 36.2 MMOL/L (24-32); TOTAL PROTEIN 7.2 G/DL (6.4-8.2); TRIGLYCERIDES 90 MG/DL (20-135); eGFR 47 ML/MIN
[2019-09-26] MEDS: budesonide 0.5mg/2ml UD nebule IH SCH ×2 (07:58→19:19)
[2019-09-26] MEDS: docusate sod 100mg capsule PO SCH ×2 (08:00→20:00)
[2019-09-26] MEDS: K and/or MAG REPLACEMENT MC SCH (08:00)
[2019-09-26] MEDS: spironolactone 25 MG tablet PO SCH (08:50)
[2019-09-26] MEDS: carVEDilol 12.5mg tablet PO SCH ×2 (08:51→20:48)
[2019-09-26] MEDS: levoFLOXACIN 250mg tablet PO SCH (08:51)
[2019-09-26] MEDS: amiodarone 200mg tablet PO SCH (08:51)
[2019-09-26] MEDS: methylPREDNISolone sod succ 125mg/2ml vial IV SCH (08:52)
[2019-09-26] MEDS: furosemide 40mg/4ml inj IV SCH ×2 (08:52→20:52)
[2019-09-26] MEDS: heparin, porcine 5000 units/ml vial SQ SCH ×2 (08:53→20:49)
[2019-09-26 11:00] VITALS: BP 125/68
--- NOTE | 2019-09-26 11:57 | NUR ---
Paged Khushboo, new orders to give pt Magnesium 400mg PO BID. PAGER ID: [phone] MESSAGE: [id number]: Michael Real: Pt is adament about receiving Magnesium. Reports Dr. Aguila prescribed Mg 400 BID. Thanks! -Megan [phone]
[2019-09-26 15:00] VITALS: BP 109/70
--- NOTE | 2019-09-26 15:22 | NUR ---
Nolan holbrook informed RD that pt requested to speak to RD about gout. Pt seen at bedside provided with written and verbal gout nutrition therapy education. Pt inquired about nutrition and heart health as well as general heathy lifestyle. RD provided verbal heart healthy and general heathy nutrition therapy education. RD answered questions regarding different diets and intake of fat, sodium, protein, whole grains, fruits, and vegetables. All of patient's questions were answered at this time. RD contact information provided. Will remain available. Addendum: 09/26/19 at [address] Amended: Links added.
[2019-09-26 18:00] VITALS: BP 132/73
--- NOTE | 2019-09-26 18:39 | NUR ---
Problems reprioritized. Patient report given, questions answered & plan of care reviewed with CLARIBEL Guzman. Addendum: 09/26/19 at 1841 by Pat Adhikari RN Patient in room [place] [id number]. I have received report from CLARIBEL Guzman and had the opportunity to ask questions and assume patient care.
[2019-09-26] MEDS: losartan 25mg tablet PO SCH (20:48)
[2019-09-26] MEDS: magnesium oxide 400mg tablet PO SCH (20:48)
[2019-09-26 22:00] VITALS: BP 129/72
[2019-09-27 02:00] VITALS: BP 106/61
[2019-09-27] MEDS: albuterol 2.5 MG/3 ML nebule NEB SCH ×3 (03:04→11:50)
[2019-09-27 06:09] LABS: BASOPHILS % (AUTO) 0.3 % (0-1); EOSINOPHILS % (AUTO) 0 % (0-6); HEMATOCRIT 50.8 % (42.0-52.0); HEMOGLOBIN 17.1 g/dl (14.0-17.9); LYMPHOCYTES % (AUTO) 7.8 % (21-51); MEAN CORPUSCULAR HEMOGLOBIN 31.5 PG (27.0-31.0); MEAN CORPUSCULAR HGB CONC 33.6 g/dL (33.0-36.5); MEAN CORPUSCULAR VOLUME 93.8 FL (78-98); MEAN PLATELET VOLUME 8.5 FL (7.4-10.4); MONOCYTES # (AUTO) 0.6 X10'3 (0-0.9); MONOCYTES % (AUTO) 4.8 % (2-12); NEUTROPHILS # (AUTO) 10.7 X10'3 (1.8-7.7); NEUTROPHILS % (AUTO) 87.1 % (42-75); PLATELET COUNT 193 X10'3 (140-440); RED BLOOD COUNT 5.42 X10'6 (4.70-6.10); WHITE BLOOD COUNT 12.3 X10'3 (4.5-11.0)
[2019-09-27 06:24] LABS: ALANINE AMINOTRANSFERASE 50 U/L (12-78); ALBUMIN 3.5 G/DL (3.4-5.0); ALKALINE PHOSPHATASE 69 IU/L (46-116); ANION GAP 3 (8-16); ASPARTATE AMINO TRANSFERASE 20 U/L (10-37); BILIRUBIN,TOTAL 0.3 MG/DL (0.1-1.0); BLOOD UREA NITROGEN 39 MG/DL (7-18); BUN/CREATININE RATIO 25.7 (5.4-32.0); CALCIUM 8.9 MG/DL (8.5-10.1); CHLORIDE 102 MMOL/L (99-107); CREATININE 1.52 MG/DL (0.60-1.10); GLUCOSE 166 MG/DL (70-104); MAGNESIUM 2.1 MG/DL (1.5-2.4); POTASSIUM 3.8 MMOL/L (3.5-5.1); SODIUM 144 MMOL/L (135-145); TOTAL CARBON DIOXIDE 39.2 MMOL/L (24-32); TOTAL PROTEIN 6.9 G/DL (6.4-8.2); eGFR 46 ML/MIN
--- NOTE | 2019-09-27 06:25 | NUR ---
Problems reprioritized. Patient report given, questions answered & plan of care reviewed with CLARIBEL Hung.
[2019-09-27 06:30] VITALS: BP 138/83
--- NOTE | 2019-09-27 06:37 | NUR ---
Patient in room PCU 3016. I have received report from CLARIBEL Stewart and had the opportunity to ask questions and assume patient care. Patient awake in bed and in no acute distress.
[2019-09-27] MEDS: budesonide 0.5mg/2ml UD nebule IH SCH (07:16)
[2019-09-27] MEDS: HYDROcodone/acetaminophen 5mg/325mg tablet PO PRN (07:44)
[2019-09-27] MEDS: spironolactone 25 MG tablet PO SCH (07:44)
[2019-09-27] MEDS: amiodarone 200mg tablet PO SCH (07:44)
[2019-09-27] MEDS: levoFLOXACIN 250mg tablet PO SCH (07:44)
[2019-09-27] MEDS: carVEDilol 12.5mg tablet PO SCH (07:45)
[2019-09-27] MEDS: magnesium oxide 400mg tablet PO SCH (07:45)
[2019-09-27] MEDS: methylPREDNISolone sod succ 125mg/2ml vial IV SCH (07:45)
[2019-09-27] MEDS: furosemide 40mg/4ml inj IV SCH (07:46)
[2019-09-27] MEDS: heparin, porcine 5000 units/ml vial SQ SCH (08:00)
[2019-09-27] MEDS: docusate sod 100mg capsule PO SCH (08:00)
[2019-09-27] MEDS: K and/or MAG REPLACEMENT MC SCH (08:00)
--- NOTE | 2019-09-27 08:09 | NUR ---
Patient refused colace and heparin. Patient ambulating on own, so refused heparin.
--- NOTE | 2019-09-27 09:58 | NUR ---
O2 Sat at rest on room air: 88% If below 89%: Recovery O2 Sat at rest on ___LPM:___%:___% via 2L NC No further documentation is necessary. Addendum: 09/27/19 at 1041 by Anabell Hightower RN Recovery O2 at rest is 92% on 2L NC
[2019-09-27 11:00] VITALS: BP 123/81
[2019-09-27] MEDS ORDERED: PRED10TA23 PO (11:29)
[2019-09-27] MEDS ORDERED: MAGN400T28 PO (11:29)
[2019-09-27] MEDS ORDERED: LEVO250T58 PO (11:34)
--- NOTE | 2019-09-27 14:14 | NUR ---
Patient stable for discharge per MD orders. All discharge instructions reviewed and all questions answered. New prescriptions called in to [facility] in [place]. All belongings collected and sent with patient. PIV discontinued and cannula intact. color television console monitor discontinued. Patient wheeled down to the lobby and left via private vehicle.
[2019-09-27] MEDS ORDERED: lactobacillus rhamnosus 10,000 MMU CELLS/CAPSULE PO SCH (20:00)
[2019-09-28] MEDS ORDERED: methylPREDNISolone sod succ 125mg/2ml vial IV SCH (08:00)
--- NOTE | 2019-09-30 12:12 | NUR ---
Case management DC follow up: spoke to pt spouse/Yazan: reports pt doing/feeling better, he is okay. pt states felt confidant enough that pt drove self to follow up PCP appt today 10/29/2019. O2 delivered from [facility], pt uses when feels it is necessary not 24/. acknowledged need to schedule appt w/breakfast and room attendant/Zay 1-2 wks. pt spouse denies pt has had increased/acute SOB, resp distress, cp, emergent/acute general pain, NV, dizziness, VICTOR, abd pain. verbalizes understanding of meds, why prescribed, taking as ordered, no ase noted. Verbalizes understanding of s/s that would warrant -/ER visit for evaluation. needs met, questions answered at DC, no further questions at this time.
== END 2019-09-27 14:14 | disposition home or self-care (01) | DRG 291 ==
LOC: ER 13:31 → ED HOLD 17:20 → PCU 3S 19:02
PROVIDERS: ADMIT Internal Medicine; ATTEND Internal Medicine
DX: I50.23 Acute on chronic systolic (congestive) heart failure (principal); J96.01 Acute respiratory failure with hypoxia; J96.02 Acute respiratory failure with hypercapnia; J44.1 Chronic obstructive pulmonary disease with (acute) exacerbation; I25.10 Atherosclerotic heart disease of native coronary artery without angina pectoris; N18.3 Chronic kidney disease, stage 3 (moderate); Z79.899 Other long term (current) drug therapy; Z87.891 Personal history of nicotine dependence; Z95.0 Presence of cardiac pacemaker; Z88.0 Allergy status to penicillin; Z80.0 Family history of malignant neoplasm of digestive organs; Z83.42 Family history of familial hypercholesterolemia
CPT/HCPCS: 36415; 36600; 71045; 80053; 80061; 82803; 83605; 83735; 83880; 84145; 84443; 84484; 85018; 85025; 85610; 85730; 87040; 87081; 93005; 93306; 94640; 94760; 96372; 96374; 97116; 97161; 97530; 99285; G0378; J1644; J1940; J2270; J2930; J7626

== ENCOUNTER 2020-02-23 01:03 | Emergency (ER) | payer MEDICARE, MEDICAID ==
[~2020-02-23] VITALS: Ht 175.3 cm; Wt 109.1 kg
[~2020-02-23 01:03] MED LIST changes: -ALLO300T2 PO; +AMIO200T61 PO; +FURO-149 PO; -FURO40TA4 PO; +LEVO250T58 PO; -LORA0.5T PO; -LORA10TA7 PO; +LOSA25TA41 PO; -MAGN400C PO; +MAGN400T28 PO; -OMEG500C3 PO; -POTA8TAB8 PO; -TEST75GE TD
[2020-02-23] MEDS ORDERED: diazepam inj 5 MG/ML inj. IV ONE (01:45)
[2020-02-23] MEDS ORDERED: ondansetron/PF 4mg/2ml inj IV ONE (01:45)
[2020-02-23] MEDS ORDERED: meclizine 12.5mg tablet PO ONE (01:45)
[2020-02-23] MEDS ORDERED: normal saline 1000ML IV soln IVB ONE (01:45)
[2020-02-23] MEDS ORDERED: proCHLORperazine 10 MG/2 ml inj IV ONE (01:45)
[2020-02-23 02:05] LABS: BASOPHILS # (AUTO) 0.1 X10'3 (0-0.2); BASOPHILS % (AUTO) 0.7 % (0-1); EOSINOPHILS # (AUTO) 0.2 X10'3 (0-0.9); HEMATOCRIT 51.2 % (42.0-52.0); LYMPHOCYTES # (AUTO) 1.1 X10'3 (1.1-4.8); LYMPHOCYTES % (AUTO) 13.5 % (21-51); MEAN CORPUSCULAR HEMOGLOBIN 31.3 PG (27.0-31.0); MEAN CORPUSCULAR HGB CONC 33.3 g/dL (33.0-36.5); MEAN CORPUSCULAR VOLUME 94.1 FL (78-98); MEAN PLATELET VOLUME 8.2 FL (7.4-10.4); MONOCYTES # (AUTO) 0.6 X10'3 (0-0.9); MONOCYTES % (AUTO) 6.9 % (2-12); NEUTROPHILS # (AUTO) 6.2 X10'3 (1.8-7.7); NEUTROPHILS % (AUTO) 76.9 % (42-75); PLATELET COUNT 196 X10'3 (140-440); RED BLOOD COUNT 5.44 X10'6 (4.70-6.10); RED CELL DISTRIBUTION WIDTH 14.2 % (11.5-14.5); WHITE BLOOD COUNT 8.1 X10'3 (4.5-11.0)
[2020-02-23 02:18] LABS: ALANINE AMINOTRANSFERASE 92 U/L (12-78); ALBUMIN 4.1 G/DL (3.4-5.0); ALBUMIN/GLOBULIN RATIO 1.1 (1.1-1.5); ALKALINE PHOSPHATASE 107 IU/L (46-116); ANION GAP 10 (8-16); ASPARTATE AMINO TRANSFERASE 60 U/L (10-37); BILIRUBIN,TOTAL 0.7 MG/DL (0.1-1.0); BLOOD UREA NITROGEN 30 MG/DL (7-18); BUN/CREATININE RATIO 16.6 (5.4-32.0); CALCIUM 9.4 MG/DL (8.5-10.1); CHLORIDE 101 MMOL/L (99-107); CREATININE 1.81 MG/DL (0.60-1.10); GLUCOSE 176 MG/DL (70-104); POTASSIUM 4.6 MMOL/L (3.5-5.1); SODIUM 141 MMOL/L (135-145); TOTAL CARBON DIOXIDE 30.5 MMOL/L (24-32); TOTAL PROTEIN 7.7 G/DL (6.4-8.2); eGFR 38 ML/MIN
[2020-02-23] MEDS ORDERED: ONDA8TAB13 PO (04:11)
[2020-02-23] MEDS ORDERED: MECL-183 PO (04:11)
[2020-02-23 04:26] VITALS: BP 134/81
== END 2020-02-23 04:28 | disposition home or self-care (01) ==
LOC: ER 01:04
DX: R42 Dizziness and giddiness (principal); R11.2 Nausea with vomiting, unspecified; R20.2 Paresthesia of skin; I25.10 Atherosclerotic heart disease of native coronary artery without angina pectoris; I11.0 Hypertensive heart disease with heart failure; I50.9 Heart failure, unspecified; J45.909 Unspecified asthma, uncomplicated; J44.9 Chronic obstructive pulmonary disease, unspecified; Z86.14 Personal history of Methicillin resistant Staphylococcus aureus infection; Z95.0 Presence of cardiac pacemaker; Z98.890 Other specified postprocedural states; Z88.0 Allergy status to penicillin; Z79.2 Long term (current) use of antibiotics; Z79.899 Other long term (current) drug therapy
CPT/HCPCS: 36415; 71045; 80053; 83880; 84484; 85025; 93005; 96374; 96375; 99285; J0780; J2405; J3360; J7030; J8597

== ENCOUNTER 2021-08-26 16:19 | Inpatient (IN) | payer MEDICARE, MEDICAID ==
[~2021-08-26] VITALS: Ht 193 cm; Wt 109.0 kg
[~2021-08-26 16:19] MED LIST changes: -AMIO200T61 PO; -CARV25TA PO; +CLE150C PO; +COR3.125T PO; +FLUC100T9 PO; -LEVO250T58 PO; +LORA-268 PO; -LOSA25TA41 PO; -MAGN400T28 PO; -SPIR25TA5 PO; -UBID100C16 PO; +ZAR2.5T PO
[2021-08-26 17:08] LABS: BASOPHILS # (AUTO) 0.1 X10'3 (0-0.2); BASOPHILS % (AUTO) 1.2 % (0-1); EOSINOPHILS # (AUTO) 0.1 X10'3 (0-0.9); HEMATOCRIT 42.2 % (42.0-52.0); HEMOGLOBIN 14.3 g/dl (14.0-17.9); MEAN CORPUSCULAR HEMOGLOBIN 31.2 PG (27.0-31.0); MEAN CORPUSCULAR HGB CONC 33.9 g/dL (33.0-36.5); MEAN CORPUSCULAR VOLUME 92.3 FL (78-98); MEAN PLATELET VOLUME 9.5 FL (7.4-10.4); MONOCYTES # (AUTO) 0.9 X10'3 (0-0.9); MONOCYTES % (AUTO) 14.5 % (2-12); NEUTROPHILS % (AUTO) 67.3 % (42-75); PLATELET COUNT 171 X10'3 (140-440); RED BLOOD COUNT 4.58 X10'6 (4.70-6.10); RED CELL DISTRIBUTION WIDTH 15.3 % (11.5-14.5)
[2021-08-26 17:22] LABS: ALANINE AMINOTRANSFERASE 13 U/L (12-78); ALBUMIN 3.6 G/DL (3.4-5.0); ALBUMIN/GLOBULIN RATIO 1.2 (1.1-1.5); ALKALINE PHOSPHATASE 83 IU/L (46-116); ANION GAP 8 (8-16); ASPARTATE AMINO TRANSFERASE 17 U/L (10-37); BILIRUBIN,TOTAL 2.7 MG/DL (0.1-1.0); BLOOD UREA NITROGEN 81 MG/DL (7-18); BUN/CREATININE RATIO 38.9 (5.4-32.0); CALCIUM 9.3 MG/DL (8.5-10.1); CHLORIDE 93 MMOL/L (99-107); CREATININE 2.08 MG/DL (0.60-1.10); GLUCOSE 116 MG/DL (70-104); SODIUM 137 MMOL/L (135-145); TOTAL CARBON DIOXIDE 36.3 MMOL/L (24-32); TOTAL PROTEIN 6.7 G/DL (6.4-8.2); eGFR 32 ML/MIN
[2021-08-26 17:28] LABS: POTASSIUM 2.7 MMOL/L (3.5-5.1)
[2021-08-26] MEDS ORDERED: potassium Cl 20 mEq SR tablet PO ONE (17:40)
[2021-08-26] MEDS ORDERED: potassium Cl 40 mEq/0.45% sodium chloride IV soln 520ml IV ONE (17:40)
[2021-08-26] MEDS ORDERED: furosemide 10 MG/1 ML 10ml inj IV ONE (18:15)
[2021-08-26] MEDS: potassium Cl 10 mEq/100mL bag IV SCH ×3 (18:34→22:10)
[2021-08-26] MEDS ORDERED: temazepam 15mg capsule PO PRN (21:00)
[2021-08-26] MEDS ORDERED: mag hydrox/Alum hydrox/simeth 30ml oral suspension PO PRN (21:00)
[2021-08-26] MEDS ORDERED: morphine 2 MG/ML inj. syringe IV PRN ×2 (21:00)
[2021-08-26] MEDS ORDERED: potassium Cl 40MEQ/1/2NS 520ml 520 ML IV PRN ×2 (21:00)
[2021-08-26] MEDS ORDERED: magnesium hydroxide 30ml (MOM) UD suspension PO PRN (21:00)
[2021-08-26] MEDS ORDERED: acetaminophen 650mg rectal suppository RC PRN (21:00)
[2021-08-26] MEDS ORDERED: diphenhydrAMINE 50 mg/ml inj IV PRN (21:00)
[2021-08-26] MEDS ORDERED: acetaminophen 325mg tablet PO PRN ×2 (21:00)
[2021-08-26] MEDS ORDERED: potassium Cl 20 mEq SR tablet PO PRN ×2 (21:00)
[2021-08-26] MEDS ORDERED: ondansetron 4mg rapidly disintigrating tab PO PRN (21:00)
[2021-08-26] MEDS ORDERED: bisacodyl 10mg suppository rectal RC PRN (21:00)
[2021-08-26 21:29] LABS: HEMOGLOBIN A1C 6.6 % (4.5-6.2)
[2021-08-26 21:40] LABS: CREATINE KINASE 44 U/L (39-308); LIPASE 67 U/L (73-393); MAGNESIUM 2.2 MG/DL (1.5-2.4); PHOSPHORUS 3.7 MG/DL (2.3-4.5)
[2021-08-26 22:55] LABS: APTT 30 SECONDS (22-32); D-DIMER 0.66 MG/L FEU (0-0.50)
[2021-08-27] MEDS: potassium Cl 10 mEq/100mL bag IV SCH (02:21)
[2021-08-27 03:01] LABS: BASOPHILS % (AUTO) 0.7 % (0-1); EOSINOPHILS # (AUTO) 0.1 X10'3 (0-0.9); EOSINOPHILS % (AUTO) 1.6 % (0-6); HEMATOCRIT 43.3 % (42.0-52.0); HEMOGLOBIN 14.3 g/dl (14.0-17.9); LYMPHOCYTES % (AUTO) 19.5 % (21-51); MEAN CORPUSCULAR HEMOGLOBIN 30.8 PG (27.0-31.0); MEAN CORPUSCULAR HGB CONC 33.1 g/dL (33.0-36.5); MEAN CORPUSCULAR VOLUME 93.1 FL (78-98); MEAN PLATELET VOLUME 9.6 FL (7.4-10.4); MONOCYTES # (AUTO) 0.8 X10'3 (0-0.9); MONOCYTES % (AUTO) 15.1 % (2-12); NEUTROPHILS # (AUTO) 3.3 X10'3 (1.8-7.7); NEUTROPHILS % (AUTO) 63.1 % (42-75); PLATELET COUNT 158 X10'3 (140-440); RED BLOOD COUNT 4.65 X10'6 (4.70-6.10); RED CELL DISTRIBUTION WIDTH 16.1 % (11.5-14.5); WHITE BLOOD COUNT 5.2 X10'3 (4.5-11.0)
[2021-08-27 03:24] LABS: ALANINE AMINOTRANSFERASE 12 U/L (12-78); ALBUMIN 3.5 G/DL (3.4-5.0); ALBUMIN/GLOBULIN RATIO 1.1 (1.1-1.5); ALKALINE PHOSPHATASE 73 IU/L (46-116); ANION GAP 9 (8-16); ASPARTATE AMINO TRANSFERASE 18 U/L (10-37); BILIRUBIN,TOTAL 3.2 MG/DL (0.1-1.0); BLOOD UREA NITROGEN 81 MG/DL (7-18); BUN/CREATININE RATIO 40.9 (5.4-32.0); CALCIUM 9.3 MG/DL (8.5-10.1); CHLORIDE 94 MMOL/L (99-107); CHOL/HDL RATIO 3.3 (0.00-4.99); CHOLESTEROL 110 MG/DL (0-200); CREATININE 1.98 MG/DL (0.60-1.10); GLUCOSE 109 MG/DL (70-104); HDL CHOLESTEROL 33 MG/DL (35-60); LDL CHOLESTEROL 73 MG/DL (50-100); SODIUM 139 MMOL/L (135-145); TOTAL CARBON DIOXIDE 36.2 MMOL/L (24-32); TOTAL PROTEIN 6.6 G/DL (6.4-8.2); TRIGLYCERIDES 72 MG/DL (20-135); eGFR 34 ML/MIN
[2021-08-27] MEDS ORDERED: SPIR25TA5 PO (05:01)
[2021-08-27] MEDS ORDERED: LORA-269 PO (05:01)
[2021-08-27] MEDS ORDERED: ZAR2.5T PO (05:01)
[2021-08-27] MEDS ORDERED: CARV3.1289 PO (05:01)
[2021-08-27] MEDS ORDERED: FURO40TA4 PO (05:01)
--- NOTE | 2021-08-27 07:10 | NUR ---
Pt reports abdomen has been "sore for months" with increased belching and flatulence in the past few days. Patient stqtes right elbow has been stiff and painful x 3 days and he has been coughing green phlegm x 2 weeks.
[2021-08-27] MEDS: HYDROcodone/acetaminophen 5mg/325mg tablet PO PRN ×2 (07:23→15:56)
[2021-08-27] MEDS: pantoprazole 40mg Tablet.DR PO SCH (07:33)
[2021-08-27] MEDS: heparin, porcine 5000 units/ml vial SQ SCH ×2 (07:35→20:00)
[2021-08-27] MEDS: docusate sod 100mg capsule PO SCH ×2 (07:36→19:28)
[2021-08-27] MEDS: furosemide 10 MG/1 ML 10ml inj IV SCH ×2 (07:36→18:54)
[2021-08-27] MEDS ORDERED: nitroGLYCERIN 0.1mg/hour patch TD SCH (08:00)
[2021-08-27] MEDS ORDERED: aspirin 81mg, enteric-coated 1 TAB TABLET.DR PO SCH (08:00)
[2021-08-27] MEDS: K and/or MAG REPLACEMENT MC SCH ×2 (08:56→19:07)
--- NOTE | 2021-08-27 09:30 | NUR ---
Patient resting quietly; denies needs at this time.
--- NOTE | 2021-08-27 11:00 | NUR ---
Patient resting quietly; no distress.
[2021-08-27] MEDS ORDERED: POTA8CAP20 PO (11:19)
[2021-08-27] MEDS ORDERED: MAGN400T39 PO (11:19)
[2021-08-27] MEDS ORDERED: KETO15CR2 TOP (11:19)
[2021-08-27] MEDS ORDERED: ASPI81TA52 PO (11:19)
--- NOTE | 2021-08-27 13:00 | NUR ---
Patient given lunch tray.
[2021-08-27] MEDS ORDERED: azithromycin/NS 500mg/250ml 250 ML IV ONE (16:25)
[2021-08-27] MEDS ORDERED: ipratropium/albuterol 3ml nebule NEB PRN (16:35)
[2021-08-27] MEDS: CefTRIAXone/D5W-Rocephin 1gm 50 ML IV SCH (16:57)
[2021-08-27] MEDS: ondansetron/PF 4mg/2ml inj IV PRN (18:26)
[2021-08-27] MEDS: ipratropium/albuterol 3ml nebule NEB SCH ×2 (18:52→22:31)
[2021-08-27] MEDS: budesonide 0.5mg/2ml UD nebule IH SCH (18:57)
--- NOTE | 2021-08-27 19:20 | NUR ---
At change of shift, pt SBP 86, second measurement 64. Pt c/o dizziness, nausea, diaphoresis and difficulty breathing. Pt Head lowered and feet elevated. ER MD called to bedside to assess for emergent change of condition. Dr Buckner paged and informed of patient condition. New orders to hold lasix, have RT assess for Bi-pap. Rt called to treat SOB. ER MD order a 250 ml NS bolus, and EKG. CMP, PBNP, and LA ordered from lab. Pt SBP continues to be <100, but patient states he feels a little better.
[2021-08-27 19:30] LABS: ALANINE AMINOTRANSFERASE 15 U/L (12-78); ALBUMIN 3.7 G/DL (3.4-5.0); ALKALINE PHOSPHATASE 93 IU/L (46-116); ANION GAP 10 (8-16); ASPARTATE AMINO TRANSFERASE 20 U/L (10-37); BILIRUBIN,TOTAL 2.3 MG/DL (0.1-1.0); BLOOD UREA NITROGEN 84 MG/DL (7-18); BUN/CREATININE RATIO 35.3 (5.4-32.0); CALCIUM 9.1 MG/DL (8.5-10.1); CHLORIDE 94 MMOL/L (99-107); CREATININE 2.38 MG/DL (0.60-1.10); GLUCOSE 165 MG/DL (70-104); POTASSIUM 3.7 MMOL/L (3.5-5.1); SODIUM 136 MMOL/L (135-145); TOTAL CARBON DIOXIDE 31.9 MMOL/L (24-32); TOTAL PROTEIN 7.3 G/DL (6.4-8.2); eGFR 27 ML/MIN
[2021-08-27] MEDS: carVEDilol 3.125mg tablet PO SCH (20:00)
[2021-08-27] MEDS ORDERED: metoclopramide 5 mg/ml inj IV ONE (20:45)
[2021-08-28 01:02] VITALS: BP 99/64
--- NOTE | 2021-08-28 02:54 | NUR ---
Patient is transfer from ER to PCU room 3012F in a stable condition, vitals signs stable oriented to room call light within reach bed in lower position will continue to monitor and report changes
[2021-08-28 06:09] LABS: BASOPHILS # (AUTO) 0.1 X10'3 (0-0.2); BASOPHILS % (AUTO) 0.9 % (0-1); EOSINOPHILS % (AUTO) 0.4 % (0-6); HEMATOCRIT 47.1 % (42.0-52.0); HEMOGLOBIN 15.6 g/dl (14.0-17.9); LYMPHOCYTES # (AUTO) 1.1 X10'3 (1.1-4.8); LYMPHOCYTES % (AUTO) 15.5 % (21-51); MEAN CORPUSCULAR HEMOGLOBIN 31.4 PG (27.0-31.0); MEAN CORPUSCULAR HGB CONC 33.2 g/dL (33.0-36.5); MEAN CORPUSCULAR VOLUME 94.7 FL (78-98); MEAN PLATELET VOLUME 9.5 FL (7.4-10.4); MONOCYTES # (AUTO) 0.9 X10'3 (0-0.9); MONOCYTES % (AUTO) 12.5 % (2-12); NEUTROPHILS % (AUTO) 70.7 % (42-75); PLATELET COUNT 187 X10'3 (140-440); RED BLOOD COUNT 4.98 X10'6 (4.70-6.10); RED CELL DISTRIBUTION WIDTH 16.5 % (11.5-14.5); WHITE BLOOD COUNT 7.1 X10'3 (4.5-11.0)
[2021-08-28 06:19] LABS: ALANINE AMINOTRANSFERASE 17 U/L (12-78); ALBUMIN 3.6 G/DL (3.4-5.0); ALKALINE PHOSPHATASE 99 IU/L (46-116); ANION GAP 6 (8-16); ASPARTATE AMINO TRANSFERASE 27 U/L (10-37); BILIRUBIN,TOTAL 2.5 MG/DL (0.1-1.0); BLOOD UREA NITROGEN 88 MG/DL (7-18); BUN/CREATININE RATIO 35.2 (5.4-32.0); CALCIUM 9.5 MG/DL (8.5-10.1); CHLORIDE 97 MMOL/L (99-107); GLUCOSE 115 MG/DL (70-104); POTASSIUM 4.1 MMOL/L (3.5-5.1); SODIUM 140 MMOL/L (135-145); TOTAL CARBON DIOXIDE 37.2 MMOL/L (24-32); TOTAL PROTEIN 7.1 G/DL (6.4-8.2); eGFR 26 ML/MIN
--- NOTE | 2021-08-28 06:41 | NUR ---
Problems reprioritized. Patient report given, questions answered & plan of care reviewed with Larissa SANFORD.
--- NOTE | 2021-08-28 06:57 | NUR ---
Problems reprioritized. Patient report given, questions answered & plan of care reviewed with Larissa SANFORD .
--- NOTE | 2021-08-28 06:57 | NUR ---
Patient in room PCU 3016. I have received report from Kelley SANFORD traveler and had the opportunity to ask questions and assume patient care.
[2021-08-28 07:00] VITALS: BP 111/65
[2021-08-28] MEDS: K and/or MAG REPLACEMENT MC SCH ×2 (08:00→19:27)
[2021-08-28] MEDS: docusate sod 100mg capsule PO SCH ×2 (08:00→20:00)
[2021-08-28] MEDS: ipratropium/albuterol 3ml nebule NEB SCH ×5 (08:01→23:49)
[2021-08-28] MEDS: budesonide 0.5mg/2ml UD nebule IH SCH ×2 (08:01→20:28)
[2021-08-28] MEDS: potassium chloride 8mEq ER tablet PO SCH (08:15)
[2021-08-28] MEDS: pantoprazole 40mg Tablet.DR PO SCH (08:16)
[2021-08-28] MEDS: CefTRIAXone/D5W-Rocephin 1gm 50 ML IV SCH (08:16)
[2021-08-28] MEDS: aspirin 81mg, enteric-coated 1 TAB TABLET.DR PO SCH (08:16)
[2021-08-28] MEDS: carVEDilol 3.125mg tablet PO SCH ×2 (08:16→21:00)
[2021-08-28] MEDS: heparin, porcine 5000 units/ml vial SQ SCH ×2 (08:18→21:01)
[2021-08-28] MEDS: furosemide 10 MG/1 ML 10ml inj IV SCH ×2 (08:19→10:18)
[2021-08-28] MEDS: azithromycin/NS 500mg/250ml 250 ML IV SCH (08:20)
[2021-08-28 11:00] VITALS: BP 82/62
[2021-08-28 15:00] VITALS: BP 90/57
--- NOTE | 2021-08-28 15:07 | NUR ---
Diabetes consult: re "new diabetic, low sodium ed" Noted current A1C 6.6 down from 7.4 in January of 2021 where pt received written and verbal DM education. Further DM ed not indicated this admit. Pt seen at previous admit July 2021 for verbal and written Heart healthy education. No further education planned this admit Addendum: 08/28/21 at [address] Amended: Links added.
[2021-08-28 18:00] VITALS: BP 109/73
--- NOTE | 2021-08-28 18:23 | NUR ---
Problems reprioritized. Patient report given, questions answered & plan of care reviewed with Mary RN Traveler.
[2021-08-29 02:00] VITALS: BP 104/70
--- NOTE | 2021-08-29 04:56 | NUR ---
Stable throughout the shift, weight 104.1 kg (to have daily weights), humidifier added to his oxygen for c/o dry nares. No other c/o
[2021-08-29 06:00] VITALS: BP 119/82
--- NOTE | 2021-08-29 06:15 | NUR ---
received report from rashmi gillis
--- NOTE | 2021-08-29 06:30 | NUR ---
Change of shift report given to CLARIBEL Lobo Addendum: 08/29/21 at 0644 by Mary Wallace RN Amended: Links added.
[2021-08-29 06:53] LABS: BASOPHILS % (AUTO) 0.8 % (0-1); EOSINOPHILS # (AUTO) 0.1 X10'3 (0-0.9); EOSINOPHILS % (AUTO) 1.9 % (0-6); HEMATOCRIT 44.9 % (42.0-52.0); HEMOGLOBIN 14.8 g/dl (14.0-17.9); LYMPHOCYTES # (AUTO) 1.3 X10'3 (1.1-4.8); LYMPHOCYTES % (AUTO) 21.3 % (21-51); MEAN CORPUSCULAR HEMOGLOBIN 31.1 PG (27.0-31.0); MEAN CORPUSCULAR HGB CONC 33.1 g/dL (33.0-36.5); MEAN CORPUSCULAR VOLUME 93.9 FL (78-98); MEAN PLATELET VOLUME 9.7 FL (7.4-10.4); MONOCYTES # (AUTO) 0.9 X10'3 (0-0.9); MONOCYTES % (AUTO) 14.5 % (2-12); NEUTROPHILS # (AUTO) 3.8 X10'3 (1.8-7.7); NEUTROPHILS % (AUTO) 61.5 % (42-75); PLATELET COUNT 190 X10'3 (140-440); RED BLOOD COUNT 4.78 X10'6 (4.70-6.10); RED CELL DISTRIBUTION WIDTH 16.6 % (11.5-14.5); WHITE BLOOD COUNT 6.2 X10'3 (4.5-11.0)
[2021-08-29 07:16] LABS: ALANINE AMINOTRANSFERASE 22 U/L (12-78); ALBUMIN 3.4 G/DL (3.4-5.0); ALKALINE PHOSPHATASE 87 IU/L (46-116); ANION GAP 8 (8-16); ASPARTATE AMINO TRANSFERASE 36 U/L (10-37); BILIRUBIN,TOTAL 1.7 MG/DL (0.1-1.0); BLOOD UREA NITROGEN 92 MG/DL (7-18); BUN/CREATININE RATIO 31.4 (5.4-32.0); CALCIUM 9.2 MG/DL (8.5-10.1); CHLORIDE 95 MMOL/L (99-107); CREATININE 2.93 MG/DL (0.60-1.10); GLUCOSE 111 MG/DL (70-104); SODIUM 136 MMOL/L (135-145); TOTAL CARBON DIOXIDE 33.3 MMOL/L (24-32); TOTAL PROTEIN 6.7 G/DL (6.4-8.2); eGFR 21 ML/MIN
[2021-08-29] MEDS: budesonide 0.5mg/2ml UD nebule IH SCH ×2 (07:20→20:01)
[2021-08-29] MEDS: ipratropium/albuterol 3ml nebule NEB SCH ×4 (07:20→20:00)
[2021-08-29] MEDS: aspirin 81mg, enteric-coated 1 TAB TABLET.DR PO SCH (07:41)
[2021-08-29] MEDS: carVEDilol 3.125mg tablet PO SCH ×2 (07:41→20:36)
[2021-08-29] MEDS: potassium chloride 8mEq ER tablet PO SCH (07:41)
[2021-08-29] MEDS: pantoprazole 40mg Tablet.DR PO SCH (07:42)
[2021-08-29] MEDS: levoTHYROXINE 75mcg tablet PO SCH (07:42)
[2021-08-29] MEDS: CefTRIAXone/D5W-Rocephin 1gm 50 ML IV SCH (07:46)
[2021-08-29] MEDS: furosemide 10 MG/1 ML 10ml inj IV SCH (07:46)
[2021-08-29] MEDS: heparin, porcine 5000 units/ml vial SQ SCH ×2 (07:54→20:37)
[2021-08-29] MEDS: docusate sod 100mg capsule PO SCH (07:54)
[2021-08-29 07:56] LABS: POTASSIUM 4.3 MMOL/L (3.5-5.1)
[2021-08-29] MEDS: K and/or MAG REPLACEMENT MC SCH ×2 (07:57→20:00)
[2021-08-29] MEDS: azithromycin/NS 500mg/250ml 250 ML IV SCH (08:35)
[2021-08-29] MEDS: LORazepam 0.5 MG tablet PO PRN ×3 (10:02→23:16)
[2021-08-29] MEDS: ondansetron/PF 4mg/2ml inj IV PRN (10:03)
[2021-08-29 11:16] VITALS: BP 96/61
--- NOTE | 2021-08-29 11:17 | NUR ---
O2 Sat at rest on room air:__87_% If below 89%: Recovery O2 Sat at rest on _4__LPM:__95_%:___% via nasal cannula (mask/nasal cannula, etc..) No further documentation is necessary. If O2 Sat did not drop below 89% on room air,ambulate patient on room air. O2 Sat while ambulating on room air:___% Recovery O2 Sat while ambulating on ___LPM:___% No further documentation is necessary. If patient does not drop below 89% while ambulating, he/she does not qualify for home O2.
[2021-08-29 18:00] VITALS: BP 103/74
--- NOTE | 2021-08-29 18:15 | NUR ---
gave report to rashmi gillis
[2021-08-29] MEDS ORDERED: furosemide 20 MG/2 ML vial IV SCH (20:00)
[2021-08-29] MEDS: Melatonin 3mg tablet PO SCH (20:36)
[2021-08-29 22:00] VITALS: BP 120/76
[2021-08-30 02:00] VITALS: BP 104/81
--- NOTE | 2021-08-30 06:36 | NUR ---
Change of shift report given to CLARIBEL Dickerson Addendum: 08/30/21 at 0637 by Mary Wallace RN Amended: Links added.
--- NOTE | 2021-08-30 06:46 | NUR ---
Patient in room PCU 3016. I have received report from PATSY SANFORD and had the opportunity to ask questions and assume patient care.
[2021-08-30 07:00] VITALS: BP 105/72
[2021-08-30 07:07] LABS: BASOPHILS # (AUTO) 0.1 X10'3 (0-0.2); BASOPHILS % (AUTO) 1.5 % (0-1); EOSINOPHILS # (AUTO) 0.1 X10'3 (0-0.9); EOSINOPHILS % (AUTO) 1.1 % (0-6); HEMATOCRIT 44.9 % (42.0-52.0); HEMOGLOBIN 15.2 g/dl (14.0-17.9); LYMPHOCYTES # (AUTO) 1.3 X10'3 (1.1-4.8); LYMPHOCYTES % (AUTO) 18.3 % (21-51); MEAN CORPUSCULAR HEMOGLOBIN 31.4 PG (27.0-31.0); MEAN CORPUSCULAR HGB CONC 33.8 g/dL (33.0-36.5); MEAN CORPUSCULAR VOLUME 92.8 FL (78-98); MEAN PLATELET VOLUME 9.6 FL (7.4-10.4); MONOCYTES # (AUTO) 0.8 X10'3 (0-0.9); MONOCYTES % (AUTO) 11.6 % (2-12); NEUTROPHILS # (AUTO) 4.8 X10'3 (1.8-7.7); NEUTROPHILS % (AUTO) 67.5 % (42-75); PLATELET COUNT 223 X10'3 (140-440); RED BLOOD COUNT 4.84 X10'6 (4.70-6.10); RED CELL DISTRIBUTION WIDTH 16.6 % (11.5-14.5); WHITE BLOOD COUNT 7.2 X10'3 (4.5-11.0)
[2021-08-30] MEDS: ipratropium/albuterol 3ml nebule NEB SCH ×6 (07:07→23:00)
[2021-08-30] MEDS: budesonide 0.5mg/2ml UD nebule IH SCH ×2 (07:08→19:22)
[2021-08-30 07:43] LABS: ALANINE AMINOTRANSFERASE 33 U/L (12-78); ALBUMIN 3.5 G/DL (3.4-5.0); ALKALINE PHOSPHATASE 96 IU/L (46-116); ANION GAP 11 (8-16); ASPARTATE AMINO TRANSFERASE 55 U/L (10-37); BILIRUBIN,TOTAL 1.4 MG/DL (0.1-1.0); BLOOD UREA NITROGEN 95 MG/DL (7-18); BUN/CREATININE RATIO 30.5 (5.4-32.0); CALCIUM 9.4 MG/DL (8.5-10.1); CHLORIDE 93 MMOL/L (99-107); CREATININE 3.11 MG/DL (0.60-1.10); GLUCOSE 120 MG/DL (70-104); SODIUM 135 MMOL/L (135-145); TOTAL CARBON DIOXIDE 31.3 MMOL/L (24-32); TOTAL PROTEIN 6.9 G/DL (6.4-8.2); eGFR 20 ML/MIN
[2021-08-30 07:44] LABS: POTASSIUM 4.4 MMOL/L (3.5-5.1)
[2021-08-30] MEDS: K and/or MAG REPLACEMENT MC SCH ×2 (08:00→20:00)
[2021-08-30] MEDS ORDERED: furosemide 20 MG/2 ML vial IV SCH (08:00)
[2021-08-30] MEDS: CefTRIAXone/D5W-Rocephin 1gm 50 ML IV SCH (08:40)
[2021-08-30] MEDS: aspirin 81mg, enteric-coated 1 TAB TABLET.DR PO SCH (08:41)
[2021-08-30] MEDS: carVEDilol 3.125mg tablet PO SCH ×2 (08:41→20:46)
[2021-08-30] MEDS: levoTHYROXINE 75mcg tablet PO SCH (08:41)
[2021-08-30] MEDS: potassium chloride 8mEq ER tablet PO SCH (08:41)
[2021-08-30] MEDS: heparin, porcine 5000 units/ml vial SQ SCH ×2 (08:44→20:43)
[2021-08-30] MEDS: normal saline 1000ml 1,000 ML IV SCH ×4 (09:10→23:44)
[2021-08-30] MEDS ORDERED: normal saline 500ml IV soln 500 ML IV ONE (09:10)
[2021-08-30 11:00] VITALS: BP 99/58
[2021-08-30 15:00] VITALS: BP 96/67
[2021-08-30 18:00] VITALS: BP 140/98
--- NOTE | 2021-08-30 18:40 | NUR ---
Problems reprioritized. Patient report given, questions answered & plan of care reviewed with BRIANNA SANFORD.
--- NOTE | 2021-08-30 18:41 | NUR ---
Patient in room PCU 3016. I have received report from Jayla SANFORD and had the opportunity to ask questions and assume patient care.
[2021-08-30] MEDS: lactobacillus rhamnosus 10,000 MMU CELLS/CAPSULE PO SCH (20:46)
[2021-08-30] MEDS: Melatonin 3mg tablet PO SCH (20:47)
--- NOTE | 2021-08-30 21:41 | NUR ---
Patient met diabetic protocol but refusing insulin due to have a chocolate shake a few hours ago. Educated on importance of having lower blood sugars but patient still refusing insulin tonight.
[2021-08-30 22:00] VITALS: BP 143/68
[2021-08-30] MEDS: diphenhydrAMINE 25mg capsule PO PRN (22:55)
[2021-08-31 02:00] VITALS: BP 106/75
--- NOTE | 2021-08-31 06:00 | NUR ---
Patient in room PCU 3016. I have received report from BRIANNA SANFORD and had the opportunity to ask questions and assume patient care. PT ALERT. SITTING UP ON SIDE OF BED. DENIES NEEDS. CALL LIGHT IN REACH. Addendum: 08/31/21 at 0852 by Galina Merino RN Amended: Links added.
--- NOTE | 2021-08-31 06:18 | NUR ---
Problems reprioritized. Patient report given, questions answered & plan of care reviewed with Aracely SANFORD.
[2021-08-31 06:30] VITALS: BP 97/63
[2021-08-31 07:13] LABS: BASOPHILS # (AUTO) 0.1 X10'3 (0-0.2); BASOPHILS % (AUTO) 1.1 % (0-1); EOSINOPHILS # (AUTO) 0.1 X10'3 (0-0.9); EOSINOPHILS % (AUTO) 1.8 % (0-6); HEMOGLOBIN 14.7 g/dl (14.0-17.9); LYMPHOCYTES # (AUTO) 0.8 X10'3 (1.1-4.8); LYMPHOCYTES % (AUTO) 13.1 % (21-51); MEAN CORPUSCULAR HEMOGLOBIN 31.3 PG (27.0-31.0); MEAN CORPUSCULAR HGB CONC 33.3 g/dL (33.0-36.5); MEAN CORPUSCULAR VOLUME 93.9 FL (78-98); MEAN PLATELET VOLUME 9.4 FL (7.4-10.4); MONOCYTES # (AUTO) 0.7 X10'3 (0-0.9); NEUTROPHILS # (AUTO) 4.7 X10'3 (1.8-7.7); PLATELET COUNT 192 X10'3 (140-440); RED BLOOD COUNT 4.69 X10'6 (4.70-6.10); RED CELL DISTRIBUTION WIDTH 16.4 % (11.5-14.5); WHITE BLOOD COUNT 6.4 X10'3 (4.5-11.0)
[2021-08-31 07:25] LABS: ALANINE AMINOTRANSFERASE 35 U/L (12-78); ALBUMIN 3.5 G/DL (3.4-5.0); ALBUMIN/GLOBULIN RATIO 1.1 (1.1-1.5); ALKALINE PHOSPHATASE 105 IU/L (46-116); ANION GAP 9 (8-16); ASPARTATE AMINO TRANSFERASE 48 U/L (10-37); BILIRUBIN,TOTAL 1.1 MG/DL (0.1-1.0); BLOOD UREA NITROGEN 91 MG/DL (7-18); CALCIUM 8.9 MG/DL (8.5-10.1); CHLORIDE 97 MMOL/L (99-107); CREATININE 2.53 MG/DL (0.60-1.10); GLUCOSE 117 MG/DL (70-104); POTASSIUM 3.7 MMOL/L (3.5-5.1); SODIUM 137 MMOL/L (135-145); TOTAL CARBON DIOXIDE 31.1 MMOL/L (24-32); TOTAL PROTEIN 6.8 G/DL (6.4-8.2); eGFR 25 ML/MIN
[2021-08-31] MEDS: normal saline 1000ml 1,000 ML IV SCH ×2 (07:30→20:24)
[2021-08-31] MEDS: lactobacillus rhamnosus 10,000 MMU CELLS/CAPSULE PO SCH ×2 (07:30→20:25)
[2021-08-31] MEDS: aspirin 81mg, enteric-coated 1 TAB TABLET.DR PO SCH (07:31)
[2021-08-31] MEDS: levoTHYROXINE 75mcg tablet PO SCH (07:31)
[2021-08-31] MEDS: CefTRIAXone/D5W-Rocephin 1gm 50 ML IV SCH (07:32)
[2021-08-31] MEDS: heparin, porcine 5000 units/ml vial SQ SCH ×2 (07:32→20:22)
[2021-08-31] MEDS: ipratropium/albuterol 3ml nebule NEB SCH ×5 (07:46→23:25)
[2021-08-31] MEDS: budesonide 0.5mg/2ml UD nebule IH SCH ×2 (07:46→20:07)
[2021-08-31] MEDS: K and/or MAG REPLACEMENT MC SCH ×2 (08:00→20:00)
--- NOTE | 2021-08-31 08:21 | NUR ---
Initial: pt admitted w/ CHF, PNA and LATOYA w/ CKD per EMR; currently on 3L NC. Pt noted to be 72in on previous admits making true BMI 31. Pt currently on CCHO/Sodium restricted diet as well as 1.5L fluid restriction w/ avg intake 50% of meals which meets approximately 45% of est energy needs and 80% of est protein needs. Pt could benefit from Ensure Enlive TID to help meet nutrient needs; to be sent pending MD approval. [facility] 08/30 . Will continue to monitor. Recs: 1. Continue CCHO/2gNa diet as tolerated per MD 2. Ensure Enlive TID; pending MD verification 3. Bowel care per rx 4. Weekly wts Addendum: 08/31/21 at [address] Amended: Links added.
--- NOTE | 2021-08-31 08:32 | NUR ---
PAGER ID: [phone] MESSAGE: 3016B GERBER SBP 97. HR 85. I WOULD LIKE TO GIVE COREG ANYWAY. OK? CAN I CHANGE TO HOLD ORDERS FOR SBP UNDER 90? MARCOS LOUISE
[2021-08-31] MEDS: carVEDilol 3.125mg tablet PO SCH ×2 (09:15→20:26)
[2021-08-31] MEDS: potassium chloride 8mEq ER tablet PO SCH (09:15)
--- NOTE | 2021-08-31 09:19 | NUR ---
PAGER ID: [phone] MESSAGE: 3016B GERBER SBP 97. HR 85. I WOULD LIKE TO GIVE COREG ANYWAY. OK? CAN I CHANGE TO HOLD ORDERS FOR SBP UNDER 90? MARCOS LOUISE
--- NOTE | 2021-08-31 09:19 | NUR ---
DR VALENTIN NOTIFIED FOR 11 BEAT RUN [facility].
[2021-08-31 11:10] VITALS: BP 96/65
[2021-08-31] MEDS: lactose-reduced food (Ensure Enlive) - 237ml bottle PO SCH ×2 (13:00→18:00)
[2021-08-31 15:00] VITALS: BP 94/66
[2021-08-31 18:00] VITALS: BP 110/66
--- NOTE | 2021-08-31 18:13 | NUR ---
Problems reprioritized. Patient report given, questions answered & plan of care reviewed with BRIANNA SANFORD. PT EATING DINNER, UP IN CHAIR. Addendum: 08/31/21 at 1815 by Galina Merino RN Amended: Links added.
--- NOTE | 2021-08-31 18:19 | NUR ---
Patient in room PCU 3016. I have received report from Galina SANFORD and had the opportunity to ask questions and assume patient care.
[2021-08-31] MEDS: Melatonin 3mg tablet PO SCH (20:26)
[2021-08-31] MEDS: diphenhydrAMINE 25mg capsule PO PRN (21:54)
[2021-08-31 22:00] VITALS: BP 99/74
[2021-09-01 02:00] VITALS: BP 105/86
--- NOTE | 2021-09-01 06:23 | NUR ---
Problems reprioritized. Patient report given, questions answered & plan of care reviewed with Shahida SANFORD.
--- NOTE | 2021-09-01 06:30 | NUR ---
Patient in room PCU 3016. I have received report from Charlene SANFORD and had the opportunity to ask questions and assume patient care. Patient stayed in chair bedside last night. He sleeps in a chair at home because he feels like he can breathe better.Plan of care was discussed with patient. Patient was asking about his Mag level this morning and stated that he runs low often, resulting in arrhythmias. All needs of patient met at this time.
[2021-09-01] MEDS: CefTRIAXone/D5W-Rocephin 1gm 50 ML IV SCH (07:41)
[2021-09-01] MEDS: carVEDilol 3.125mg tablet PO SCH (07:41)
[2021-09-01] MEDS: levoTHYROXINE 75mcg tablet PO SCH (07:42)
[2021-09-01] MEDS: aspirin 81mg, enteric-coated 1 TAB TABLET.DR PO SCH (07:42)
[2021-09-01] MEDS: potassium chloride 8mEq ER tablet PO SCH (07:42)
[2021-09-01] MEDS: lactobacillus rhamnosus 10,000 MMU CELLS/CAPSULE PO SCH (07:43)
[2021-09-01] MEDS: heparin, porcine 5000 units/ml vial SQ SCH (07:44)
[2021-09-01] MEDS: lactose-reduced food (Ensure Enlive) - 237ml bottle PO SCH (07:45)
[2021-09-01] MEDS: K and/or MAG REPLACEMENT MC SCH (08:00)
[2021-09-01 08:01] LABS: BASOPHILS # (AUTO) 0.1 X10'3 (0-0.2); BASOPHILS % (AUTO) 1.4 % (0-1); EOSINOPHILS # (AUTO) 0.1 X10'3 (0-0.9); HEMATOCRIT 44.3 % (42.0-52.0); HEMOGLOBIN 14.6 g/dl (14.0-17.9); LYMPHOCYTES # (AUTO) 1.1 X10'3 (1.1-4.8); LYMPHOCYTES % (AUTO) 19.9 % (21-51); MEAN CORPUSCULAR HEMOGLOBIN 30.9 PG (27.0-31.0); MEAN CORPUSCULAR HGB CONC 32.9 g/dL (33.0-36.5); MEAN PLATELET VOLUME 9.2 FL (7.4-10.4); MONOCYTES # (AUTO) 0.6 X10'3 (0-0.9); MONOCYTES % (AUTO) 11.1 % (2-12); NEUTROPHILS # (AUTO) 3.7 X10'3 (1.8-7.7); NEUTROPHILS % (AUTO) 65.6 % (42-75); PLATELET COUNT 178 X10'3 (140-440); RED BLOOD COUNT 4.71 X10'6 (4.70-6.10); RED CELL DISTRIBUTION WIDTH 16.9 % (11.5-14.5); WHITE BLOOD COUNT 5.6 X10'3 (4.5-11.0)
[2021-09-01 08:30] LABS: ALANINE AMINOTRANSFERASE 33 U/L (12-78); ALBUMIN 3.4 G/DL (3.4-5.0); ALKALINE PHOSPHATASE 94 IU/L (46-116); ANION GAP 7 (8-16); ASPARTATE AMINO TRANSFERASE 32 U/L (10-37); BILIRUBIN,TOTAL 1.2 MG/DL (0.1-1.0); BLOOD UREA NITROGEN 83 MG/DL (7-18); BUN/CREATININE RATIO 38.4 (5.4-32.0); CHLORIDE 99 MMOL/L (99-107); CREATININE 2.16 MG/DL (0.60-1.10); GLUCOSE 121 MG/DL (70-104); MAGNESIUM 2.3 MG/DL (1.5-2.4); POTASSIUM 3.8 MMOL/L (3.5-5.1); SODIUM 139 MMOL/L (135-145); TOTAL CARBON DIOXIDE 33.1 MMOL/L (24-32); TOTAL PROTEIN 6.7 G/DL (6.4-8.2); eGFR 30 ML/MIN
[2021-09-01] MEDS: budesonide 0.5mg/2ml UD nebule IH SCH (08:57)
[2021-09-01] MEDS: ipratropium/albuterol 3ml nebule NEB SCH (08:57)
[2021-09-01] MEDS ORDERED: COR3.125T PO (11:09)
[2021-09-01] MEDS ORDERED: FURO20TA4 PO (11:09)
[2021-09-01] MEDS ORDERED: LEVO75TA7 PO (11:09)
--- NOTE | 2021-09-01 12:40 | NUR ---
Patient is stable to discharge per MD. Patient has been educated and all questions answered in regards to new medications and diagnosis. PIV was removed and tele was discontinued. Patient belongings were collected and patient was rolled down to lobby by an aid to meet his ride for discharge home.
== END 2021-09-01 12:40 | disposition home or self-care (01) | DRG 189 ==
LOC: ER 16:19 → ED HOLD 21:05 → PCU 3S 08-28 00:25
PROVIDERS: ADMIT Family Medicine; ATTEND Family Medicine
DX: J96.20 Acute and chronic respiratory failure, unspecified whether with hypoxia or hypercapnia (principal); N17.0 Acute kidney failure with tubular necrosis; I50.43 Acute on chronic combined systolic (congestive) and diastolic (congestive) heart failure; I13.0 Hypertensive heart and chronic kidney disease with heart failure and stage 1 through stage 4 chronic kidney disease, or unspecified chronic kidney disease; J44.1 Chronic obstructive pulmonary disease with (acute) exacerbation; J98.11 Atelectasis; E03.9 Hypothyroidism, unspecified; I87.2 Venous insufficiency (chronic) (peripheral); N18.9 Chronic kidney disease, unspecified; K76.0 Fatty (change of) liver, not elsewhere classified; E66.01 Morbid (severe) obesity due to excess calories; E87.6 Hypokalemia; I25.10 Atherosclerotic heart disease of native coronary artery without angina pectoris; R94.6 Abnormal results of thyroid function studies; E11.22 Type 2 diabetes mellitus with diabetic chronic kidney disease; F41.1 Generalized anxiety disorder; G47.00 Insomnia, unspecified; Z20.822 Contact with and (suspected) exposure to COVID-19; I48.91 Unspecified atrial fibrillation; G47.33 Obstructive sleep apnea (adult) (pediatric); Z95.0 Presence of cardiac pacemaker; Z99.81 Dependence on supplemental oxygen; Z86.73 Personal history of transient ischemic attack (TIA), and cerebral infarction without residual deficits; Z80.0 Family history of malignant neoplasm of digestive organs; Z84.89 Family history of other specified conditions; Z87.442 Personal history of urinary calculi; Z88.0 Allergy status to penicillin; Z88.8 Allergy status to other drugs, medicaments and biological substances; Z79.82 Long term (current) use of aspirin; Z79.899 Other long term (current) drug therapy; Z68.29 Body mass index [BMI] 29.0-29.9, adult
CPT/HCPCS: 36415; 71045; 74176; 80053; 80061; 82550; 82948; 83036; 83605; 83690; 83735; 83880; 84100; 84443; 84484; 85025; 85379; 85610; 85730; 87081; 87635; 93005; 94640; 94760; 99285; G0378; J0456; J0696; J1644; J1940; J2405; J2765; J3480; J7030; Q0163

== ENCOUNTER 2021-09-08 11:41 | Emergency (ER) | payer MEDICARE, MEDICAID ==
[~2021-09-08] VITALS: Ht 182.9 cm; Wt 109.5 kg
[~2021-09-08 11:41] MED LIST changes: +ASPI81TA52 PO; -CLE150C PO; -FLUC100T9 PO; -FURO-149 PO; +FURO20TA4 PO; +KETO15CR2 TOP; +LEVO75TA7 PO; +MAGN400T39 PO; +POTA8CAP20 PO; -ZAR2.5T PO
[2021-09-08] MEDS ORDERED: aspirin 325mg tablet, delayed-release (Ecotrin) PO ONE (11:55)
--- NOTE | 2021-09-08 12:19 | NUR ---
PATIENT SPEAKING FULL SENTENCES. LUNG KING ARE CLEAR AND EQUAL AT BILATERAL APEX, DIMINISHED PRIMARILY AT THE RIGHT BASE.
[2021-09-08 12:24] LABS: BASOPHILS % (AUTO) 0.8 % (0-1); EOSINOPHILS % (AUTO) 0.7 % (0-6); HEMATOCRIT 45.3 % (42.0-52.0); HEMOGLOBIN 14.9 g/dl (14.0-17.9); LYMPHOCYTES # (AUTO) 0.5 X10'3 (1.1-4.8); LYMPHOCYTES % (AUTO) 8.8 % (21-51); MEAN CORPUSCULAR HEMOGLOBIN 31.5 PG (27.0-31.0); MEAN CORPUSCULAR VOLUME 95.4 FL (78-98); MEAN PLATELET VOLUME 9.1 FL (7.4-10.4); MONOCYTES # (AUTO) 0.5 X10'3 (0-0.9); NEUTROPHILS # (AUTO) 4.8 X10'3 (1.8-7.7); NEUTROPHILS % (AUTO) 81.7 % (42-75); PLATELET COUNT 209 X10'3 (140-440); RED BLOOD COUNT 4.75 X10'6 (4.70-6.10); WHITE BLOOD COUNT 5.8 X10'3 (4.5-11.0)
[2021-09-08 12:35] LABS: APTT 28 SECONDS (22-32)
[2021-09-08 12:39] LABS: ALANINE AMINOTRANSFERASE 19 U/L (12-78); ALBUMIN 3.5 G/DL (3.4-5.0); ALBUMIN/GLOBULIN RATIO 1.1 (1.1-1.5); ALKALINE PHOSPHATASE 91 IU/L (46-116); ANION GAP 8 (8-16); ASPARTATE AMINO TRANSFERASE 24 U/L (10-37); BILIRUBIN,TOTAL 1.9 MG/DL (0.1-1.0); BLOOD UREA NITROGEN 59 MG/DL (7-18); BUN/CREATININE RATIO 31.6 (5.4-32.0); CALCIUM 9.2 MG/DL (8.5-10.1); CHLORIDE 96 MMOL/L (99-107); CREATININE 1.87 MG/DL (0.60-1.10); GLUCOSE 176 MG/DL (70-104); POTASSIUM 3.6 MMOL/L (3.5-5.1); SODIUM 137 MMOL/L (135-145); TOTAL CARBON DIOXIDE 33.2 MMOL/L (24-32); TOTAL PROTEIN 6.6 G/DL (6.4-8.2); eGFR 36 ML/MIN
[2021-09-08] MEDS ORDERED: furosemide 10 MG/1 ML 10ml inj IV ONE (14:40)
[2021-09-08 16:42] VITALS: BP 100/78
== END 2021-09-08 16:43 | disposition home or self-care (01) ==
LOC: ER 11:42
DX: I50.23 Acute on chronic systolic (congestive) heart failure (principal); R05.9 Cough, unspecified; R06.02 Shortness of breath; I25.10 Atherosclerotic heart disease of native coronary artery without angina pectoris; I13.0 Hypertensive heart and chronic kidney disease with heart failure and stage 1 through stage 4 chronic kidney disease, or unspecified chronic kidney disease; N18.9 Chronic kidney disease, unspecified; J44.9 Chronic obstructive pulmonary disease, unspecified; Z86.14 Personal history of Methicillin resistant Staphylococcus aureus infection; Z95.0 Presence of cardiac pacemaker; Z98.890 Other specified postprocedural states; Z88.0 Allergy status to penicillin; Z88.8 Allergy status to other drugs, medicaments and biological substances; Z79.899 Other long term (current) drug therapy
CPT/HCPCS: 36415; 71045; 80053; 83735; 83880; 84484; 85025; 85610; 85730; 93005; 96374; 99285; J1940